=== PATIENT | female | born 1960 | race Caucasian/White ===

== ENCOUNTER → 2016-05-26 | Outpatient (CLI) | payer MEDICARE, OTHER ==
--- NOTE | 2016-05-26 22:27 | US ---
EXAMINATION TYPE: US thyroid st tissue head/neck DATE OF EXAM: 05/26/2016 4:44 PM COMPARISON: NONE CLINICAL HISTORY: 56-year-old female E04.1 THYROID NODULE. TECHNIQUE: Multiple sonographic images of the thyroid gland are obtained. FINDINGS: GLAND SIZE: Right Lobe: 2.8 x 1.0 x 1.1 cm Overall Parenchyma: heterogenous Left Lobe: 3.6 x 1.5 x 0.8 cm Overall Parenchyma: heterogeneous Isthmus Thickness: 0.3 cm NODULES RIGHT: # of nodules measured on right: 1 1. 0.7 X 0.6 x 0.7 cm echogenic solid nodule at the mid pole with well-defined margins; . This nod ule is wider than tall and shows intranodular vascularity. LEFT: # of nodules measured on left: 0 ISTHMUS: # of nodules measured in the isthmus: 0 TECHNOLOGIST NOTES: Heterogenous gland noted bilaterally. Hypoechoic area adjacent to bilateral thyr oid lobes, larger on the right where it measures up to 2.1 x 1.0 cm along the posterior superior frida in of the thyroid gland (??normal lobulated thyroid tissue vs. other etiology) IMPRESSION: 1. Small heterogeneous thyroid gland. Correlate for chronic thyroiditis or long-standing hypothyroidi sm. 2. Solitary 7 mm solid nodule in the right lobe. 3. Lobulated hypoechoic area is seen adjacent to both lobes of the thyroid gland larger on the right where it measures up to 2.1 cm. Uncertain if this represents adjacent more normal thyroid gland tissu e or some other etiology such as adjacent lymph nodes. This can be monitored on a clinical basis. Fo llow-up ultrasound can also reassess for stability.
== END ==
LOC: RADUSWWP 16:09
PROVIDERS: ATTEND Otolaryngology
DX: E04.1 Nontoxic single thyroid nodule (principal)
CPT/HCPCS: 76536

== ENCOUNTER → 2016-09-11 | Outpatient (CLI) | payer MEDICARE, OTHER ==
--- NOTE | 2016-09-11 16:28 | MR ---
EXAMINATION TYPE: MR lumbar spine wo con DATE OF EXAM: 09/11/2016 COMPARISON: 03/15/2014 HISTORY: 56-year-old female with low back pain TECHNIQUE: Multiplanar, multisequence images of the lumbar spine were acquired. FINDINGS: Mild multilevel degenerative disc disease with variable disc desiccation and bulging discs. Redemonstrated left paracentral/intraforaminal annular fissure at L4-L5. Facet arthropathy within the mid to lower lumbar spine with mild ligamentum flavum thickening. Vertebral body heights are preserved and alignment is maintained. No suspicious bone marrow replacement. Conus medullaris is normal. From T12 through L2 levels, no significant spinal canal or neuroforaminal stenosis. At L2-L3, there is mild diffuse disc bulge and mild facet degenerative change. No significant spinal canal or neuroforaminal stenosis. At L3-L4, there is facet degenerative change without significant spinal canal or neuroforaminal steno sis. At L4-L5, there is mild diffuse disc bulge with a small left intraforaminal protrusion containing an annular fissure, similar to prior exam. Disc material closely approaches the exiting left L4 nerve ro ot without clear abutment. There is additional ligamentum flavum thickening and facet degenerative ch chris. Minimal encroachment onto the right neuroforamen. No significant spinal canal stenosis. At L5-S1, there is mild bulging disc, ligamentum flavum thickening, and hypertrophic facet arthropath y. No significant spinal canal or neural foraminal stenosis. No prevertebral or paravertebral soft tissue abnormality seen. There is a 2.0 cm cystic lesion within the left ovary that may be slightly larger as compared to 2014. If the patient is premenopausal, a dominant follicle or functional cyst is suggested. IMPRESSION: 1. Mild multilevel degenerative disc disease redemonstrated. There is ligamentum flavum thickening an d facet arthropathy also again seen within the mid to lower lumbar spine. 2. Similar disc bulge at L4-L5 with a left intraforaminal annular fissure. Disc material closely appr oaches the exiting left L4 nerve root without clear nerve root abutment. 3. No foraminal or spinal canal compromise. 4. A 2.0 cm cystic lesion within the left ovary appears slightly larger as compared to 03/15/2014. If t he patient is premenopausal, findings suggest a dominant follicle or functional cyst. If the patient is postmenopausal, annual ultrasound surveillance may be indicated.
== END | disposition home or self-care (01) ==
LOC: RADMRIMAIN 14:20
PROVIDERS: ATTEND Nurse Practitioner Acute Care
DX: M51.26 Other intervertebral disc displacement, lumbar region (principal); M51.36 Other intervertebral disc degeneration, lumbar region; M46.06 Spinal enthesopathy, lumbar region; Z88.1 Allergy status to other antibiotic agents; Z88.2 Allergy status to sulfonamides
CPT/HCPCS: 72148

== ENCOUNTER → 2017-01-15 | Outpatient (CLI) | payer MEDICARE, OTHER ==
--- NOTE | 2017-01-15 13:25 | XR ---
EXAMINATION TYPE: XR chest 2V DATE OF EXAM: 01/15/2017 COMPARISON: Prior chest x-ray March 06, 2014 HISTORY: Presurgical study. TECHNIQUE: Frontal and lateral views of the chest are obtained. FINDINGS: There is chronic medical change without suspicious focal air space opacity, pleural effusi on, or pneumothorax seen. The cardiac silhouette size is stable and within normal limits. There is p artial visualization of surgical change of the lower cervical spine. IMPRESSION: No acute cardiopulmonary process. No significant change from prior.
--- NOTE | 2017-01-15 15:38 | CT ---
EXAMINATION TYPE: CT soft tissue neck w con DATE OF EXAM: 01/15/2017 COMPARISON: Thyroid ultrasound 01/07/2017 HISTORY: 56-year-old female neck mass, thyroid nodule. TECHNIQUE: Contiguous axial scanning of the soft tissues of the neck performed with IV Contrast, kylie ent injected with 100 mL of Omnipaque 300. Coronal/sagittal reconstructions were obtained. CT DLP: 437 mGycm Automated exposure control for dose reduction was used. FINDINGS: Visualized intracranial structures, orbits and globes, paranasal sinuses appear within normal limits. Mastoid air cells are somewhat hypoplastic. Nasal pharynx appears clear. There appears to be soft tissue thickening throughout the oropharynx including the lingual tonsils an d along the left greater than right tonsillar pillars. The glottic and subglottic structures as well as the tracheal column are clear. There is some pleural -parenchymal scarring and blebs in the visualized upper lungs. The thyroid gland shows no gross abnormality by CT. There does appear to be some prominent extension of thyroid tissue posteriorly on either side of the esophagus. This likely accounts for the ultrasoun d finding. Submandibular and parotid glands are satisfactory. Scattered nonenlarged cervical lymph nodes on both sides of the neck measuring up to 8 mm station 2A on the left. Status post C5-C7 ACDF. IMPRESSION: 1. SOFT TISSUE THICKENING THROUGHOUT THE MUCOSAL SPACE OF THE OROPHARYNX INCLUDING THE LINGUAL TONSIL S AND LEFT GREATER THAN RIGHT TONSILLAR PILLARS. DIRECT VISUALIZATION IS RECOMMENDED. TONSILLITIS AND LYMPHOID HYPERPLASIA ARE IN THE DIFFERENTIAL. 2. THYROID TISSUE DOES EXTEND POSTERIORLY TO LIE ON EITHER SIDE OF THE ESOPHAGUS. THIS LIKELY ACCOUNT S FOR THE ULTRASOUND FINDING.
== END | disposition home or self-care (01) ==
LOC: RADCTMAIN 12:44
PROVIDERS: ATTEND Otolaryngology
DX: J39.2 Other diseases of pharynx (principal); R22.1 Localized swelling, mass and lump, neck
CPT/HCPCS: 71020; 70491; Q9967

== ENCOUNTER → 2017-07-03 | Outpatient (CLI) | payer MEDICARE, OTHER ==
--- NOTE | 2017-07-03 11:34 | MR ---
EXAMINATION TYPE: MR lumbar spine wo/w con DATE OF EXAM: 07/03/2017 COMPARISON: 09/11/2016 HISTORY: Low back pain TECHNIQUE: T1 and T2 axial and sagittal images of the lumbar spine are submitted. Contrast: 7 mL Gadavist FINDINGS: There is no abnormal signal seen within the visualized spinal cord or paraspinal soft tissu es. Stable subcentimeter left renal lesions. There is a tiny nerve root sleeve diverticulum at T12-L1 the right At L1-2 there is mild degenerative disc disease but no disc herniation or canal stenosis. No foramina l encroachment. At L2-3 there is mild degenerative disc disease and circumferential disc bulging which is stable. No Canal stenosis. Very mild neural foraminal encroachment. At L3-4 there is hypertrophic change of the facets. No canal stenosis or disc herniation. No foramina l encroachment. At L4-5 there is postsurgical changes with no canal stenosis. No disc herniation. Faint increased sig nal within the disc space likely is postsurgical rather then related discitis. There is increased sig nal along the right neural foramina. There is artifact which limits assessment from the surgical scre ws. This may represent granulation tissue or scar formation. Extends along the right neural foraminal results in mild encroachment. At L5-S1 there is marked facet arthropathy. There appears to be mild bilateral foraminal encroachment . Diminutive spinal canal noted results in borderline central stenosis. Findings are stable. Minimal disc bulging stable. IMPRESSION: 1. Postsurgical changes with abnormal signal within the disc space of L4-5. This is felt to be most l ikely postsurgical rather than related to early discitis but should be correlated clinically for conf irmation. 2. Assessment of the surgical levels is limited due to artifact from the metallic hardware. There chris s appear to be intermediate signal along the posterior margin the L4-L5 right neural foramina which c ould be related to artifact although, postoperative granulation tissue or scar enteritis in the diffe rential diagnosis. Neural foramina remains patent. Correlate for radiculopathy at this level. 3. Stable facet arthropathy and ligamentum flavum hypertrophy L5-S1 with mild foraminal encroachment with no disc herniation. Diminutive canal contributes to borderline central stenosis. Findings stable .
== END | disposition home or self-care (01) ==
LOC: RADMRIMAIN 09:35
PROVIDERS: ATTEND Nurse Practitioner Acute Care
DX: M24.28 Disorder of ligament, vertebrae (principal); Z98.890 Other specified postprocedural states; M54.5 Low back pain; Z88.0 Allergy status to penicillin; Z88.2 Allergy status to sulfonamides; Z88.1 Allergy status to other antibiotic agents
CPT/HCPCS: 72158

== ENCOUNTER → 2017-07-14 | Outpatient (CLI) | payer MEDICARE, OTHER ==
--- NOTE | 2017-07-14 16:11 | US ---
EXAMINATION TYPE: US thyroid st tissue head/neck DATE OF EXAM: 07/14/2017 COMPARISON: US 2017 CLINICAL HISTORY: 57-year-old female E04.1 Thyroid Nodule; takes thyroid medication TECHNIQUE: Multiple sonographic images of the thyroid gland are obtained. FINDINGS: GLAND SIZE: Right Lobe: 2.4 x 0.7 x 0.9 cm Overall Parenchyma: heterogenous Left Lobe: 3.2 x 0.7 x 0.6 cm Overall Parenchyma: heterogeneous Isthmus Thickness: 0.2 cm NODULES RIGHT: # of nodules measured on right: 1 1. 0.8 X 0.5 x 0.4 cm isoechoic solid nodule at the mid pole with well-defined margins. This nodul e is wider than tall and shows no intranodular vascularity. Prior size: 0.8 x 0.6 x 0.8 cm LEFT: # of nodules measured on left: 0 ISTHMUS: # of nodules measured in the isthmus: 0 Bilateral neck scanned, no evidence of lymphadenopathy. Dough Mixer Helper notes: Lateral to the right thyroid lobe, there is an oval area with echogenicity equal to right thyroid gla nd measuring 1.8 x 1.5 x 0.7cm (possible accessory thyroid gland vs. lymph node). (Previously 1.1 x 1 .1 x 0.6 cm) Along the inferior lateral aspect of the left thyroid lobe, there appears to be an extension of thyro id tissue contiguous with the remainder of the lobe measuring 2.3 x 0.5 x 0.7 cm as seen previously. IMPRESSION: 1. Some ectopic thyroid tissue versus a lymph node lateral to the right lobe of the thyroid gland. Th is currently measures 1.8 x 1.5 cm versus 1.1 x 1.1 cm, previously. Recommend additional short interv al follow-up. If additional growth is noted, repeat CT neck can be considered. 2. Lobular extension from the inferior lateral aspect of the left thyroid lobe as seen previously олег sures 2.3 x 0.7 cm. 3. Stable solid right midpole nodule at 8 mm.
== END | disposition home or self-care (01) ==
LOC: RADUSWWP 14:42
PROVIDERS: ATTEND Otolaryngology
DX: E04.1 Nontoxic single thyroid nodule (principal)
CPT/HCPCS: 76536

== ENCOUNTER → 2017-08-19 | Outpatient (CLI) | payer MEDICARE, OTHER ==
--- NOTE | 2017-08-21 10:39 | MM ---
Reason for exam: screening (asymptomatic). Last mammogram was performed 2 years and 2 months ago. History: Family history of breast cancer in sister at age 56. Physical Findings: A clinical breast exam by your physician is recommended on an annual basis and results should be correlated with mammographic findings. MG 3D Screening Mammo W/Cad Bilateral CC and MLO view(s) were taken. Prior study comparison: June 14, 2015, mammogram. The breast tissue is heterogeneously dense. This may lower the sensitivity of mammography. Finding: There are typically benign circumscribed round oval masses bilaterally unchanged from 2016. No suspicious abnormality. No significant changes in finding since June 14, 2015. ASSESSMENT: Benign, BI-RAD 2 RECOMMENDATION: Routine screening mammogram of both breasts in 1 year.
== END | disposition home or self-care (01) ==
LOC: RADMAMWWP 14:28
PROVIDERS: ATTEND Family Medicine
DX: Z12.31 Encounter for screening mammogram for malignant neoplasm of breast (principal)
CPT/HCPCS: 77063; 77067

== ENCOUNTER → 2017-12-25 | Outpatient (CLI) | payer MEDICARE, OTHER ==
--- NOTE | 2017-12-25 15:24 | CT ---
EXAMINATION TYPE: CT iac w con DATE OF EXAM: 12/25/2017 COMPARISON: July 08, 2012 HISTORY: hearing loss to both ears, tinnitus CT DLP: 150.0 mGycm Automated exposure control for dose reduction was used. CONTRAST: CT scan of the IACs is performed with IV Contrast, patient injected with 100 mL of Isovue 300. FINDINGS: The external auditory canals are patent bilaterally. Mastoid air cells show no evidence of abnormal opacification bilaterally. The middle ear ossicles are symmetric and unremarkable. There is no evidence of suspicious surrounding soft tissue density to suggest cholesteatoma. The scutum is preserved bilaterally. The cochlea and the semicircular canals are symmetric and unremarkable. Ves tibular aqueduct and internal carotid canal appear unremarkable. Temporomandibular joints are mainta ined bilaterally. IMPRESSION: No significant abnormality seen to account for patient's symptoms.
== END | disposition home or self-care (01) ==
LOC: RADCTMAIN 14:15
PROVIDERS: ATTEND Otolaryngology
DX: H91.91 Unspecified hearing loss, right ear (principal); H93.19 Tinnitus, unspecified ear; H93.3X9 Disorders of unspecified acoustic nerve
CPT/HCPCS: 70481; Q9967

== ENCOUNTER → 2017-12-25 | Outpatient (CLI) | payer MEDICARE, OTHER ==
--- NOTE | 2017-12-25 15:15 | CT ---
EXAMINATION TYPE: CT lumbar spine wo con DATE OF EXAM: 12/25/2017 COMPARISON: HISTORY: low back pain, hx of lumbar fusion years ago CT DLP: 1063.[address] of the lumbar spine was performed. Bone and soft tissue window settings are submitted as well as coronal and sagittal reconstructions. L1-L2: Normal disc space height. No disc herniation protrusion or central stenosis. No facet joint arthropathy. No evidence for foraminal encroachment. L2-L3: Normal disc space height. No disc herniation protrusion or central stenosis. No facet joint arthropathy. No evidence for foraminal encroachment. L3-L4: Normal disc space height. No disc herniation protrusion or central stenosis. No facet joint arthropathy. No evidence for foraminal encroachment. L4-L5: Postoperative changes of fusion. Intervertebral body spacers are in place. Pedicular screws ar e also in place. Alignment is anatomic. Streak artifact limits evaluation. No definite evidence for r ecurrent or residual disease at this time. L5-S1: Normal disc space height. No disc herniation protrusion or central stenosis. No facet joint arthropathy. No evidence for foraminal encroachment. No paraspinal masses are identified. Lumbar segments are free if fracture. IMPRESSION: 1. Postoperative changes at L4-5 with alignment being anatomic. 2. Remaining levels are within normal limits.
== END | disposition home or self-care (01) ==
LOC: RADCTMAIN 14:12
PROVIDERS: ATTEND Neurological Surgery
DX: M54.41 Lumbago with sciatica, right side (principal); Z98.1 Arthrodesis status
CPT/HCPCS: 72131

== ENCOUNTER → 2018-01-19 | Outpatient (CLI) | payer MEDICARE, OTHER ==
--- NOTE | 2018-01-20 12:05 | MR ---
EXAMINATION TYPE: MR lumbar spine wo con DATE OF EXAM: 01/19/2018 COMPARISON: CT of the lumbar spine dated 12/25/2017. MRI of the lumbar spine dated 07/03/2017 and 2016. HISTORY: Lumbago with sciatica, right side, back pain TECHNIQUE: Multiplanar, multisequence images of the lumbar spine were acquired. FINDINGS: The lumbar vertebral bodies maintain normal vertebral body height and alignment. Bone marro w signal is within normal limits. Conus medullaris is unremarkable terminating at L1. Right T12 perin eural cyst is again seen and partially visualized given [id number]. Postsurgical changes L4-L5 cre ates susceptibility artifact and slightly limits evaluation. L1-L2: There is disc desiccation without spinal canal stenosis nor neural foraminal narrowing. Schmor l's node is seen of the inferior endplate of T12 secondary to degenerative disc disease. L2-L3: There is disc desiccation and a small broad-based disc bulge resulting in. Minimal neural fora celestino encroachment without spinal canal stenosis. Mild facet arthropathy is also seen at this level. L3-L4: Small broad-based disc bulge, ligamentum flavum buckling and facet arthropathy is noted withou t spinal canal stenosis nor neural foraminal narrowing. L4-L5: Again there is postsurgical change at this level with small left hemilaminectomy defect presen t in the right anterior lamina obscured. As seen on the prior exam on sagittal T1 and T2 image 6 ther e is elongated hypointensity measuring 2.2 cm in craniocaudal dimension. Extent of abnormal signal al christa the right neuroforamen as seen on the prior exam is obscured by susceptibility artifact is again faintly suspected. The left neural foramen on sagittal images appears patent with moderate neural for aminal narrowing on the right. Increased signal within the discs space on the right on image 8 of sag ittal T2 nonfat sat sequence represents a small annular tear. L5-S1: Marked facet arthropathy is again seen. A broad-based disc bulge is present without significan t neural foraminal narrowing. Again there is mild spinal canal stenosis as seen on the prior secondar y to posterior encroachment by T1/T2 hypointense granulation tissue or epidural fibrosis. IMPRESSION: 1. Similar findings the prior exam of 07/03/2017 with right-sided moderate neural foraminal narrowing and at L4-L5 and mild spinal canal stenosis at L5-S1 secondary to either granulation tissue or epidur al fibrosis. Limited repeat T1 postcontrast sequence could evaluate for enhancing epidural fibrosis. Again correlate with radiculopathy levels. 2. Annular tear within the L4-L5 disc without focal herniation. 3. Multilevel degenerative disc disease with no disc herniation.
== END | disposition home or self-care (01) ==
LOC: RADMRIMAIN 13:04
PROVIDERS: ATTEND Neurological Surgery
DX: M48.07 Spinal stenosis, lumbosacral region (principal); M99.73 Connective tissue and disc stenosis of intervertebral foramina of lumbar region; M51.36 Other intervertebral disc degeneration, lumbar region
CPT/HCPCS: 72148

== ENCOUNTER → 2018-01-29 | Outpatient (CLI) | payer MEDICARE, OTHER ==
--- NOTE | 2018-01-29 10:53 | US ---
EXAMINATION TYPE: US thyroid st tissue head/neck DATE OF EXAM: 01/29/2018 COMPARISON: NONE CLINICAL HISTORY: E04.1 Thyroid Nodule. 07/24 US GLAND SIZE: Right Lobe: 2.6 x 0.9 x 0.8 cm Overall Parenchyma: hypoechoic, atrophied, diffusely heterogeneous Left Lobe: 3.6 x 0.9 x 0.6 cm Overall Parenchyma: lobular, hypoechoic and diffusely heterogeneous Isthmus Thickness: 0.2 cm NODULES RIGHT: # of nodules measured on right: 1 1. 0.7 X 0.4 x 0.5 cm echogenic solid nodule at the lower pole with well-defined margins. This nod ule is wider than tall and shows peripheral vascularity. Prior size: 0.8 x 0.5 x 0.4 cm LEFT: # of nodules measured on left: 0 ISTHMUS: # of nodules measured in the isthmus: 0 Superior to the right lobe, there is a 1.0 x 0.4 x 0.8cm solid structure that is isoechoic to the rig ht lobe that may represent either ectopic thyroid tissue or lymph node. This could be a parathyroid. Inferior to the left lobe, there is a 0.7 x 0.4 x 0.4cm solid structure that is isoechoic to the left lobe that may represent either ectopic thyroid tissue or lymph node. This could be a parathyroid. IMPRESSION: 1. Subcentimeter right lobe thyroid nodule. 2. Couple of nodules adjacent to the thyroid lobes which are nonspecific. Lymph node and parathyroid are within the differential. CT soft tissue neck be performed if additional evaluation would be of be nefit.
== END | disposition home or self-care (01) ==
LOC: RADUSWWP 10:07
PROVIDERS: ATTEND Otolaryngology
DX: E04.1 Nontoxic single thyroid nodule (principal)
CPT/HCPCS: 76536

== ENCOUNTER → 2018-02-19 | Outpatient (CLI) | payer MEDICARE, OTHER ==
--- NOTE | 2018-02-19 16:55 | MR ---
EXAMINATION TYPE: MR iac wo/w con DATE OF EXAM: 02/19/2018 COMPARISON: CT 12/25/2017 HISTORY: BiLateral hearing loss, Gadavist 7.5 TECHNIQUE: Multiplanar, multisequence images of the brain and brainstem is performed without and with IV contras t, utilizing 7.5 mL intravenous Gadavist, small [id number] high-resolution images obtained through the internal auditory canals . FINDINGS: Diffusion weighted images demonstrate no evidence of a recent infarct or other diffusion ab normality. There is no extra-axial fluid collection. Scattered periventricular, subcortical and alecia p white matter hyperintensities are present on inversion recovery T2-weighted sequences, approximatel y 30-40 lesions are present, largest in the left frontal lobe on axial image 23 measures 6 mm The melvi tricular system and cisternal spaces are normal in size and appearance. The brain volume is age appr opriate. Midline structures demonstrate normal morphology. The craniocervical junction appears within normal limits. Post contrast images demonstrate no abnormal enhancement. The dural venous sinuses appear pa tent. The visualized sinuses are clear and the globes are intact. IMPRESSION: Nonspecific white matter demyelination may be due to chronic small vessel ischemia, hyper tension, vasculitis, multiple sclerosis felt to be less likely.
== END | disposition home or self-care (01) ==
LOC: RADMRIMAIN 15:07
PROVIDERS: ATTEND Otolaryngology Otology & Neurotology
DX: G37.8 Other specified demyelinating diseases of central nervous system (principal); D49.6 Neoplasm of unspecified behavior of brain
CPT/HCPCS: 70553; A9585

== ENCOUNTER → 2018-07-20 | Outpatient (CLI) | payer MEDICARE, OTHER ==
--- NOTE | 2018-07-20 15:28 | US ---
EXAMINATION TYPE: US thyroid st tissue head/neck DATE OF EXAM: 07/20/2018 COMPARISON: 01/29/2018 and 07/14/2017. CLINICAL HISTORY: E04.1 Thyroid nodule. GLAND SIZE: Right Lobe: 2.4 x 0.8 x 0.6 cm Overall Parenchyma: heterogenous Left Lobe: 3.2 x 0.7 x 0.6 cm Overall Parenchyma: heterogeneous Isthmus Thickness: 0.6 cm NODULES RIGHT: # of nodules measured on right: 1 1. 0.6 X 0.4 x 0.4 cm echogenic solid nodule at the mid pole with well-defined margins. This nodul e is wider than tall and shows intranodular vascularity. Prior size: 0.7 x 0.4 x 0.4 cm LEFT: # of nodules measured on left: 0 ISTHMUS: # of nodules measured in the isthmus: 0 Bilateral neck scanned, no evidence of lymphadenopathy. IMPRESSION: Stable size of the solitary right hyperechoic thyroid nodule in comparison to the prior of 01/29/2018 and 07/14/2017. The previously seen adjacent lymph node is no longer visualized.
== END | disposition home or self-care (01) ==
LOC: RADUSWWP 14:50
PROVIDERS: ATTEND Otolaryngology
DX: E04.1 Nontoxic single thyroid nodule (principal); Z88.0 Allergy status to penicillin; Z88.1 Allergy status to other antibiotic agents; Z88.2 Allergy status to sulfonamides
CPT/HCPCS: 76536

== ENCOUNTER → 2018-10-14 | Outpatient (CLI) | payer MEDICARE, OTHER ==
--- NOTE | 2018-10-18 09:48 | MM ---
Reason for exam: screening (asymptomatic). Last mammogram was performed 1 year and 2 months ago. History: Patient is postmenopausal. Family history of breast cancer in sister at age 56. Physical Findings: A clinical breast exam by your physician is recommended on an annual basis and results should be correlated with mammographic findings. MG Screening Mammo w CAD Bilateral CC and MLO view(s) were taken. Prior study comparison: August 19, 2017, bilateral MG 3d screening mammo w/cad. June 14, 2015, mammogram. The breast tissue is heterogeneously dense. This may lower the sensitivity of mammography. No suspicious abnormality on the left. Right architectural distortion in the central, slightly inferior right breast at middle depth 5-6cm from nipple. ASSESSMENT: Incomplete: need additional imaging evaluation, BI-RAD 0 RECOMMENDATION: Special view mammogram of the right breast. If lesion persists on supplemental views, image directed ultrasound is recommended. [facility] will attempt to contact patient to return for supplemental views and ultrasound if indicated.
== END | disposition home or self-care (01) ==
LOC: RADMAMWWP 13:07
PROVIDERS: ATTEND Family Medicine
DX: Z12.31 Encounter for screening mammogram for malignant neoplasm of breast (principal)
CPT/HCPCS: 77067

== ENCOUNTER → 2018-10-27 | Outpatient (CLI) | payer MEDICARE, OTHER ==
--- NOTE | 2018-10-27 14:48 | MM ---
Reason for exam: additional evaluation requested from abnormal screening. Last mammogram was performed less than 1 month ago. History: Patient is postmenopausal. Family history of breast cancer in sister at age 56. Physical Findings: Nurse did not find any significant physical abnormalities on exam. MG 3D Work Up W/Cad RT Spot compression CC, spot compression MLO, and LM view(s) were taken of the right breast. Prior study comparison: October 14, 2018, bilateral MG screening mammo w CAD. August 19, 2017, bilateral MG 3d screening mammo w/cad. The breast tissue is heterogeneously dense. This may lower the sensitivity of mammography. There is chronic nodularity in the right breast. There is no discrete abnormality on compression. These results were verbally communicated with the patient and result sheet given to the patient on 10/27/18. ASSESSMENT: Probably benign, BI-RAD 3 RECOMMENDATION: Follow-up diagnostic mammogram of the right breast in 6 months.
== END | disposition home or self-care (01) ==
LOC: RADMAMWWP 14:10
PROVIDERS: ATTEND Family Medicine
DX: R92.8 Other abnormal and inconclusive findings on diagnostic imaging of breast (principal)
CPT/HCPCS: 77065; G0279; 77061

== ENCOUNTER → 2019-03-31 | Outpatient (CLI) | payer MEDICARE, OTHER ==
--- NOTE | 2019-03-31 15:35 | CTL ---
EXAMINATION TYPE: CT Low Dose Lung DATE OF EXAM ORDERED: 03/31/2019 COMPARISON: None HISTORY: . Low Dose CT Lung Screening CT DLP: [address] CTDI: 2.64 mGy IV CONTRAST USED: None. SCREENING VISIT: First visit COMPARISON: None. TECHNIQUE: Low dose computed tomography scan was performed through the chest at 1 millimeter thick se ctions and reconstructed images in the coronal plane at [address] DIAGNOSTIC QUALITY: Satisfactory FINDINGS: LUNG NODULES yes Right lung: Bilobed pulmonary nodules measuring 3 mm and 4 mm respectively images 17 and 18. 4.3 mm p ulmonary nodule right lower lobe medially image 46. Left lung: No nodule seen. LUNGS: COPD: Severity: Mild. Upper lobe emphysematous changes seen. Fibrosis: Severity:None Lymph nodes: None Other findings: None RIGHT PLEURAL SPACE: Effusion: None Calcification: None Thickening: None Pneumothorax: None LEFT PLEURAL SPACE: Effusion: None Calcification: None Thickening: None Pneumothorax: None HEART: Heart Size: Mildly enlarged Coronary calcification: Mild Pericardial effusion: None OTHER FINDINGS: Upper abdomen: No significant abnormality Bony thorax: Degenerative changes Supraclavicular region: No significant abnormalityOther: No significant abnormalityI IMPRESSION: Benign FOLLOW UP CT CHEST RECOMMENDATION: Follow-up screening in one year. Smoking cessation advised. CT LUNG RAD: LUNG RAD CATEGORY category 2 benign appearance or behavior.
== END | disposition home or self-care (01) ==
LOC: RADCTMAIN 14:55
PROVIDERS: ATTEND Physician Assistant
DX: Z12.2 Encounter for screening for malignant neoplasm of respiratory organs (principal); F17.210 Nicotine dependence, cigarettes, uncomplicated

== ENCOUNTER → 2019-05-12 | Outpatient (CLI) | payer MEDICARE, OTHER ==
--- NOTE | 2019-05-12 15:02 | MM ---
Reason for exam: follow-up at short interval from prior study. Last mammogram was performed 6 months ago. History: Patient is postmenopausal. Family history of breast cancer in sister at age 56. Took estrogen for 1 year 6 months. Physical Findings: Nurse did not find any significant physical abnormalities on exam. MG 3D Diag Mammo W/Cad RT CC and MLO view(s) were taken of the right breast. Prior study comparison: October 27, 2018, right breast MG 3d work up w/cad RT. October 14, 2018, bilateral MG screening mammo w CAD. The breast tissue is heterogeneously dense. This may lower the sensitivity of mammography. There is a stable right lower outer quadrant 4mm mass back to 2016. No new suspicious abnormality. The central lower focal asymmetry at middle depth has resolved. These results were verbally communicated with the patient and result sheet given to the patient on 05/12/19. ASSESSMENT: Benign, BI-RAD 2 RECOMMENDATION: Return to routine screening mammogram schedule for both breasts. Back on schedule for October 2019.
== END | disposition home or self-care (01) ==
LOC: RADMAMWWP 12:52
PROVIDERS: ATTEND Family Medicine
DX: R92.8 Other abnormal and inconclusive findings on diagnostic imaging of breast (principal)
CPT/HCPCS: 77065; G0279; 77061

== ENCOUNTER 2019-10-30 12:17 | Emergency (ER) | payer MEDICARE, OTHER ==
[2019-10-30 12:22] VITALS: BP 161/96; PULSE 82; RESP 20; TEMP 97.7
--- NOTE | 2019-10-30 12:43 | ED ---
Upper Extremity HPI - General Chief Complaint: Extremity Injury, Upper Stated Complaint: shoulder pain Time Seen by Provider: 10/30/19 12:23 Source: patient, RN notes reviewed Mode of arrival: ambulatory Limitations: no limitations - History of Present Illness Initial Comments: 59-year-old female presents emergency Department with chief complaint of left shoulder pain, rib pain. Patient states that she was coughing so hard other day she felt a pop. Patient states it's been painful ever sent. Patient was evaluated by pain management physician yesterday did receive injection in her shoulder. Patient presented requesting x-ray. She denies feeling short of breath no anterior chest pain no palpitations denies any headache or dizziness. Patient states that she does have cardiac history but states that she has no chest pain and that nature and states that she just wants x-ray. - Related Data Home Medications Medication Instructions Recorded Confirmed Aspirin 81 mg PO DAILY 03/06/14 04/25/15 Atorvastatin [Lipitor] 40 mg PO DAILY 03/06/14 04/25/15 Azelastine(Dose Unknown) 2 sprays NASAL BID 03/06/14 04/25/15 Ventolin(Dose Unknown) 2 puff INHALATION BID PRN 03/06/14 04/25/15 carvediloL [Coreg] 3.125 mg PO DAILY 03/06/14 04/25/15 diphenhydrAMINE [Benadryl] 25 mg PO DAILY PRN 03/06/14 04/25/15 Fluticasone Nasal [place] [Flonase 1 spray EA NOSTRIL BID 04/25/15 04/25/15 Nasal [place]] Hydrocodone/Acetaminophen [[place] 1 tab PO Q8H PRN 04/25/15 04/25/15 10-325] Isosorbide Mononitrate ER [Imdur] 30 mg PO DAILY 04/25/15 04/25/15 Levocetirizine Dihydrochloride 5 mg PO DAILY 04/25/15 04/25/15 [Xyzal] Levothyroxine Sodium [Synthroid] 88 mcg PO DAILY 04/25/15 04/25/15 Allergies Allergy/AdvReac Type Severity Reaction Status Date / Time ampicillin Allergy Unknown Verified 10/30/19 12:22 Childhood erythromycin base Allergy Nausea, Verified 10/30/19 12:22 stomach cramps latex Allergy itchy nose Verified 10/30/19 12:22 Tetracyclines Allergy Nausea Verified 10/30/19 12:22 perfumes Allergy Unknown Uncoded 10/30/19 12:22 Review of Systems ROS Statement: Those systems with pertinent positive or pertinent negative responses have been documented in the HPI. ROS Other: All systems not noted in ROS Statement are negative. Past Medical History Past Medical History: Asthma, COPD, Hearing Disorder / Deafness, Hyperlipidemia, Myocardial Infarction (CO), Osteoarthritis (OA), Pneumonia, Syncope, Thyroid Disorder Additional Past Medical History / Comment(s): 2011 M, DJD, rotator cuff tear Last Myocardial Infarction Date:: 2011 History of Any Multi-Drug Resistant Organisms: None Reported Past Surgical History: Heart Catheterization With Stent, Orthopedic Surgery, Tubal Ligation Additional Past Surgical History / Comment(s): 3 stents, cleft palette repair, several ear surgeries(tubes mostly, ear drum reconstruction) eye surgery (detached retina), nose surgery, plate and 2 screws in neck, cortisone shots in back, Past Anesthesia/Blood Transfusion Reactions: Family History of Problems w/ Anesthesia Additional Past Anesthesia/Blood Transfusion Reaction / Comment(s): after nose surgery, trouble breathing Date of Last Stent Placement:: metal stent March 2012 1 placed, February 2014 1 placed Past Psychological History: Anxiety, Depression Smoking Status: Current every day smoker Past Alcohol Use History: Rare Past Drug Use History: None Reported - Past Family History Mother Family Medical History: Congestive Heart Failure (CHF) Father Family Medical History: Congestive Heart Failure (CHF) Sister(s) Family Medical History: Cancer Additional Family Medical History / Comment(s): lung General Exam Limitations: no limitations General appearance: alert, in no apparent distress Head exam: Present: atraumatic, normocephalic, normal inspection Eye exam: Present: normal appearance, PERRL, EOMI. Absent: scleral icterus, conjunctival injection, periorbital swelling ENT exam: Present: normal exam, normal oropharynx, mucous membranes moist Neck exam: Present: normal inspection, full ROM. Absent: tenderness, meningismus, lymphadenopathy Respiratory exam: Present: normal lung sounds bilaterally, chest wall tenderness (Left posterior). Absent: respiratory distress, wheezes, rales, rhonchi, stridor Cardiovascular Exam: Present: regular rate, normal rhythm, normal heart sounds. Absent: systolic murmur, diastolic murmur, rubs, gallop, clicks GI/Abdominal exam: Present: soft, normal bowel sounds. Absent: distended, tenderness, guarding, rebound, rigid Extremities exam: Present: other (Mild discomfort with left shoulder range of motion no obvious deformity neurovascular intact there is tenderness over the scapular region) Neurological exam: Present: alert, oriented X3, CN II-XII intact, reflexes normal. Absent: motor sensory deficit Course Vital Signs 10/30/19 12:20 Temperature 97.7 F Pulse Rate 82 Respiratory 20 Rate Blood Pressure 161/96 O2 Sat by Pulse 95 Oximetry - Reevaluation(s) Reevaluation #1: 10/30/19 12:43 I did recommend lab work given her cardiac history patient declines. Medical Decision Making - Medical Decision Making X-rays unremarkable. Patient has reproducible scapular rib pain. Patient's most likely has strain of her chest wall. Patient recommended labwork a history patient states that is not cardiac. Patient will be discharged in stable condition. Disposition Clinical Impression: Left shoulder pain, Chest wall muscle strain Disposition: HOME SELF-CARE Condition: Stable Instructions (If sedation given, give patient instructions): Shoulder Pain (ED) Additional Instructions: Please return to the Emergency Department if symptoms worsen or any other concerns. Is patient prescribed a controlled substance at d/c from ED?: No Referrals: Juan Palencia DO [Primary Care Provider] - 1-2 days Time of Disposition: 13:02
--- NOTE | 2019-10-30 12:51 | XR ---
EXAMINATION TYPE: XR chest 1V DATE OF EXAM: 10/30/2019 COMPARISON: Chest x-ray January 15, 2017 HISTORY: Chest pain. TECHNIQUE: Single frontal view of the chest is obtained. FINDINGS: There is mild chronic parenchymal change without suspicious focal air space opacity, pleural effusion, or pneumothorax seen. The cardiac silhouette size remains within normal limits. Surgical changes cervical spine as partially imaged. IMPRESSION: Chronic changes without acute pulmonary process.
--- NOTE | 2019-10-30 12:52 | XR ---
EXAMINATION TYPE: XR shoulder complete LT DATE OF EXAM: 10/30/2019 CLINICAL HISTORY: Shoulder pain after fall injury. TECHNIQUE: Three views of the left shoulder are obtained. COMPARISON: None. FINDINGS: Osseous structures are demineralized. There is no acute fracture/dislocation evident in the left shoulder. Moderate narrowing at acromioclavicular joint. And distal acromion morphology is unre markable. Glenohumeral joint is preserved. The visualized ribs are intact and unremarkable. IMPRESSION: There is no acute fracture or dislocation in the left shoulder.
== END 2019-10-30 13:14 | disposition home or self-care (01) ==
LOC: EC 12:17
DX: S29.011A Strain of muscle and tendon of front wall of thorax, initial encounter (principal); R07.81 Pleurodynia; M25.512 Pain in left shoulder; J44.9 Chronic obstructive pulmonary disease, unspecified; M19.90 Unspecified osteoarthritis, unspecified site; E07.9 Disorder of thyroid, unspecified; E78.5 Hyperlipidemia, unspecified; H91.90 Unspecified hearing loss, unspecified ear; I25.2 Old myocardial infarction; F17.200 Nicotine dependence, unspecified, uncomplicated; Z79.51 Long term (current) use of inhaled steroids; Z79.82 Long term (current) use of aspirin; Z79.899 Other long term (current) drug therapy; Z79.890 Hormone replacement therapy; Z91.040 Latex allergy status; Z88.1 Allergy status to other antibiotic agents; Z91.09 Other allergy status, other than to drugs and biological substances; X58.XXXA Exposure to other specified factors, initial encounter
CPT/HCPCS: 71045; 99283

== ENCOUNTER → 2019-11-15 | Outpatient (CLI) | payer MEDICARE, OTHER ==
--- NOTE | 2019-11-15 15:23 | US ---
EXAMINATION TYPE: US thyroid st tissue head/neck DATE OF EXAM: 11/15/2019 COMPARISON: US 2019 CLINICAL HISTORY: E04.1 Nontoxic single thyroid nodule. Thyroid nodules, patient on thyroid meds GLAND SIZE: Right Lobe: 2.0 x 0.9 x 0.9 cm Overall Parenchyma: heterogenous Left Lobe: 2.7 x 0.8 x 0.6 cm Overall Parenchyma: heterogeneous Isthmus Thickness: 0.4 cm NODULES RIGHT: # of nodules measured on right: 1 1. 0.6 X 0.4 x 0.7 cm hyperechoic solid nodule at the mid pole with well-defined margins. This nodu le is wider than tall and shows intranodular vascularity. Prior size: 0.6 x 0.4 x 0.4 cm LEFT: # of nodules measured on left: 0 ISTHMUS: # of nodules measured in the isthmus: 0 Bilateral neck scanned, no evidence of lymphadenopathy. Persistent heterogeneous small size thyroid with stable 6 mm hypoechoic right thyroid nodule. IMPRESSION: As above. No new or enlarging greater than 1 cm solid nodules identified.
== END | disposition home or self-care (01) ==
LOC: RADUSWWP 14:51
PROVIDERS: ATTEND Family Medicine
DX: E04.1 Nontoxic single thyroid nodule (principal)
CPT/HCPCS: 76536

== ENCOUNTER 2020-03-23 08:53 | Day surgery (SDC) | payer MEDICARE, OTHER ==
[2020-03-22 09:01] VITALS: BMI 26.7
--- NOTE | 2020-03-23 00:26 | HP ---
HISTORY AND PHYSICAL CHIEF COMPLAINT: Fluid in the left ear. HISTORY OF PRESENT ILLNESS: The patient is a pleasant 59-year-old female who was recently seen in my office complaining of having a plugged sensation in her left ear. The patient related that approximately 22 years ago she had multiple surgeries including a tympanoplasty with mastoidectomy in the right ear. She has history of having multiple ear infections mainly because as a child she had a cleft palate, which has been repaired. At the time that she was seen in my office, clinical examination of the left ear revealed the patient to have fluid in the left middle ear space indicating chronic left serous otitis media so-called glue ear. The patient was placed on a course of oral antibiotics, namely a Z-Aleksandar and also oral steroids, dexamethasone. She was seen back in the office approximately 2 weeks later and stated that there was no significant improvement. At that point, it was recommended that she undergo a left myringotomy, insertion of a Haley T-type ventilation tube under IV sedation with M.A.C. PAST MEDICAL HISTORY: Past medical history reveals that she has: ALLERGIES: TO PENICILLIN, ERYTHROMYCIN, AND TETRACYCLINE. PREVIOUS SURGERIES: Include cleft palate repair, detached retina repair, anterior cervical fusion, lower back laminectomy, tubal ligation, she is 2 2, para 0 miscarriage. CURRENT MEDICATIONS: Include Lipitor, levothyroxine, isosorbide, baby aspirin, Coreg, gabapentin, Cymbalta, Flexeril, Xyzal, Singulair, Lasix, Prilosec, Benadryl, Astelin nasal spray and Flonase nasal spray. REVIEW OF SYSTEMS: Reveals that the cardiovascular system is positive for hypertension, ASHD. Respiratory system is negative. Gastrointestinal system is positive for GERD (gastroesophageal reflux disorder). Metabolic/ endocrine system is positive for hypercholesterolemia, hyperlipidemia, and hypothyroidism. The remainder of the review of systems is essentially unremarkable. PHYSICAL EXAMINATION: The patient is a pleasant 59-year-old female who was alert, cooperative and well oriented to time and place. HEENT examination: Patient is normocephalic. Right tympanic membrane is unremarkable. Left tympanic membrane is dull with evidence of fluid in the left middle ear space. Pupils are equal, round, and reactive to light and accommodation. Extraocular movements within normal limits. Intranasal examination reveals moderately severe septal deviation with compensatory hypertrophy of the inferior turbinates and a moderate amount of mucus on the mucous membranes and draining down the posterior pharynx. Examination of oropharynx, cranial nerves 2 through 12 and remainder of the head and neck exam are all within normal limits CHEST/CARDIOVASCULAR: Both lung flowers are clear to percussion and auscultation. The patient is in regular sinus rhythm. S1, S2 are present without evidence of any murmurs, S3s or S4s. Peripheral pulses are bilaterally symmetrical within normal limits. ABDOMEN: There is no evidence any masses megaly or tenderness. Abdomen: Soft. SKIN is unremarkable. MUSCULOSKELETAL within normal limits. NEUROLOGICAL within normal limits. PELVIC/RECTAL exam: Pelvic/rectal exam is deferred at this time because the patient has this done on a regular basis at her family physician's office. The remainder of physical exam is unremarkable. IMPRESSION: Chronic left serous otitis media. PLAN: The patient is scheduled undergo a left myringotomy with insertion of a Haley T-type ventilation tube under IV sedation in a.m. Attention RNs in the pre-surgical area: I have ordered for this patient to receive 600 mg of clindamycin IV to be given once an intravenous line has been established. If the pharmacy department sends a different pre-surgical prophylactic antibiotic to the pre- surgical area for this patient, that order should be cancelled and the medication should be returned to the pharmacy department. Please make sure that the patient's account is credited appropriately. I have canceled that order on the patient's preoperative orders, however, the pharmacy department has a tendency to try and override my cancelling of that order and therefore they may still send the medication. I have discussed the risks, benefits and alternative therapies for the above-mentioned procedure and for both sedation/analgesia as well as necessary blood product administration, if indicated, as they pertain to this patient. The patient has indicated his or her understanding and acceptance of the risks and procedures discussed. MMODL / IJN: [id number] /
[~2020-03-23 08:53] MED LIST: Pre Op ABX Message 1 EACH MISC MISCELLANE ONE
[2020-03-23] MEDS ORDERED: LIDOCAINE 1% (10MG/ML) FOR IV START INTRADERMA ONE (09:45)
[2020-03-23] MEDS ORDERED: LACTATED RINGERS 1,000 ML IV ONE (09:46)
[2020-03-23 09:52] VITALS: TEMP 98.2
[2020-03-23] MEDS ORDERED: ONDANSETRON 4 MG/2 ML VIAL ONE (09:55)
[2020-03-23] MEDS ORDERED: DEXAMETHASONE SOD PHOSPHATE 4 MG/ML 1 ML VIAL IV ONE (09:59)
[2020-03-23] MEDS ORDERED: ONDANSETRON 4 MG/2 ML VIAL IVP ONE (09:59)
[2020-03-23] MEDS ORDERED: CLINDAMYCIN 600 MG in DEXTROSE 5% IN WATER 50 ML IVPB ONE ×2 (10:00)
[2020-03-23] MEDS ORDERED: fentaNYL (PF) 50 MCG/ML 2 ML AMP ONE (10:04)
[2020-03-23] MEDS ORDERED: MIDAZOLAM 2 MG/2 ML VIAL ONE (10:04)
[2020-03-23] MEDS ORDERED: PROPOFOL 10 MG/ML 20 ML VIAL IV ONE (10:04)
[2020-03-23] MEDS ORDERED: OFLOXACIN 0.3% OTIC DROPS 5 ML BTL LEFT EAR ONE ×2 (10:22→10:29)
[2020-03-23] MEDS ORDERED: EPINEPHrine 1 MG/ML (MDV) 30 ML VIAL TOPICAL ONE (10:34)
[2020-03-23 11:09] VITALS: BP 156/73; PULSE 85; RESP 16
--- NOTE | 2020-03-24 06:58 | OP ---
OPERATIVE REPORT DATE OF SERVICE: 03/23/2020 PREOPERATIVE DIAGNOSIS: Chronic left serous otitis media. POSTOPERATIVE DIAGNOSIS: Chronic left serous otitis media. ANESTHESIA: IV sedation with MAC. OPERATIVE PROCEDURE: Left myringotomy with insertion of a Haley T-type ventilation tube. SURGEON: Dr. Guerrero. COMPLICATIONS: None. PROCEDURE: The patient was placed on the operating table in supine position. After uneventful IV sedation, satisfactory sedation was obtained. Next, the patient's left ear was draped in the usual and customary fashion. Following this, using the Ze[employer] operating microscope and a #3 aural speculum, the left external auditory canal was cleansed of all wax and debris. Next, the myringotomy knife was used to make an incision in the anterior inferior quadrant of the left tympanic membrane. The left middle ear space was suctioned free of all fluid. It is to be noted that the middle ear space was quite collapsed/decreased and there were some minor adhesions of the tympanic membrane to the medial wall of the left tympanum. Next, a Haley T-type ventilation tube was inserted through the previously made myringotomy incision without difficulty. At this point, the procedure was terminated. There were no intraoperative complications. The patient tolerated the procedure well and was returned to the recovery room in satisfactory condition. MMODL / IJN: [id number] /
== END 2020-03-23 11:27 | disposition home or self-care (01) ==
LOC: OR 08:53
PROVIDERS: ATTEND Otolaryngology
DX: H65.22 Chronic serous otitis media, left ear (principal); Z98.1 Arthrodesis status; Z98.51 Tubal ligation status; Z98.890 Other specified postprocedural states; Z79.82 Long term (current) use of aspirin; Z79.899 Other long term (current) drug therapy; Z79.890 Hormone replacement therapy; Z88.1 Allergy status to other antibiotic agents; Z88.0 Allergy status to penicillin; K21.9 Gastro-esophageal reflux disease without esophagitis; I10 Essential (primary) hypertension; E78.5 Hyperlipidemia, unspecified; I25.2 Old myocardial infarction; E07.9 Disorder of thyroid, unspecified; R55 Syncope and collapse; J44.9 Chronic obstructive pulmonary disease, unspecified; F17.210 Nicotine dependence, cigarettes, uncomplicated; Z79.891 Long term (current) use of opiate analgesic
CPT/HCPCS: 69436; J2250; J1100; J2405; J3010; J2704

== ENCOUNTER → 2020-04-10 | Outpatient (CLI) | payer MEDICARE, OTHER ==
--- NOTE | 2020-04-10 13:10 | CTL ---
EXAMINATION TYPE: CT Low Dose Lung DATE OF EXAM ORDERED: 04/10/2020 HISTORY: . Lung cancer screening CT DLP: 85.[address] CTDI: 2.4 mGy Automated exposure control for dose reduction was used. SCREENING VISIT: Follow-up COMPARISON: 03/31/2019 TECHNIQUE: Low dose computed tomography scan was performed through the chest at 1 mm thick sections a nd reconstructed images in the coronal plane at [address] DIAGNOSTIC QUALITY: Satisfactory FINDINGS: LUNG NODULES: 1. There is a somewhat rounded density in the posterior left apex present previously and stable. Seri es 4 image 33. 2. 0.5 cm nodule posterior right upper lung field. Series 4 image 77. LUNGS: COPD: Severity: Mild Fibrosis: Severity: Minimal Lymph nodes: None Other findings: None RIGHT PLEURAL SPACE: Effusion: None Calcification: None Thickening: Pneumothorax: None LEFT PLEURAL SPACE: Effusion: None Calcification: None Thickening: None Pneumothorax: None HEART: Heart Size: Normal Coronary calcification: Moderate Pericardial effusion: None OTHER FINDINGS: Upper abdomen: Normal Bony thorax: Normal Supraclavicular region: Normal Other: Ascending thoracic aorta at the level the main pulmonary artery measures 3.2 cm. The main pul monary artery at the bifurcation measures 2.7 cm. IMPRESSION: Stable findings FOLLOW UP CT CHEST RECOMMENDATION: Low dose CT chest [address] LUNG RAD: 2
== END | disposition home or self-care (01) ==
LOC: RADCTMAIN 12:10
PROVIDERS: ATTEND Family Medicine
DX: Z12.2 Encounter for screening for malignant neoplasm of respiratory organs (principal); F17.210 Nicotine dependence, cigarettes, uncomplicated
CPT/HCPCS: 71271

== ENCOUNTER → 2020-05-15 | Outpatient (CLI) | payer MEDICARE, OTHER ==
--- NOTE | 2020-05-16 08:27 | US ---
EXAMINATION TYPE: US thyroid st tissue head/neck DATE OF EXAM: 05/15/2020 COMPARISON: 10/30/2019 CLINICAL HISTORY: 60-year-old female E04.1 Nontoxic single thyroid nodule,R49.0, E03.9. Follow-up thy roid nodule TECHNIQUE: Multiple sonographic images of the thyroid gland are obtained. FINDINGS: GLAND SIZE: Right Lobe: 2.3 x 0.9 x 1.0 cm Overall Parenchyma: heterogenous Left Lobe: 2.9 x 0.8 x 0.6 cm Overall Parenchyma: heterogeneous Isthmus Thickness: 0.4 cm The gland is small and lobulated. NODULES RIGHT: # of nodules measured on right: 1 1. 0.6 X 0.5 x 0.6 cm, mid , solid, hyperechoic nodule, which is wider than tall, with smooth ted ns, without echogenic foci. Prior size: 0.6 x 0.4 x 0.7 cm LEFT: # of nodules measured on left: 0 ISTHMUS: # of nodules measured in the isthmus: 0 IMPRESSION: 1. Solitary 6 mm echogenic nodule on the right. This is a TR 3 nodule and is unchanged from previous. 2. Small, lobulated thyroid gland.
== END ==
LOC: RADUSWWP 16:36
PROVIDERS: ATTEND Family Medicine
DX: E04.1 Nontoxic single thyroid nodule (principal)
CPT/HCPCS: 76536

== ENCOUNTER → 2021-06-10 | Outpatient (CLI) | payer MEDICARE, OTHER ==
--- NOTE | 2021-06-11 10:58 | MM ---
Reason for exam: screening (asymptomatic). Last mammogram was performed 2 years and 1 month ago. History: Patient is postmenopausal. Family history of breast cancer in sister at age 56. Took estrogen for 1 year 6 months. Physical Findings: A clinical breast exam by your physician is recommended on an annual basis and results should be correlated with mammographic findings. MG 3D Screening Mammo W/Cad Bilateral CC and MLO view(s) were taken. Prior study comparison: May 12, 2019, right breast MG 3d diag mammo w/cad RT. October 27, 2018, right breast MG 3d work up w/cad RT. No significant changes when compared with prior studies. ASSESSMENT: Benign, BI-RAD 2 RECOMMENDATION: Routine screening mammogram of both breasts in 1 year.
== END | disposition home or self-care (01) ==
LOC: RADMAMWWP 10:40
PROVIDERS: ATTEND Family Medicine
DX: Z12.31 Encounter for screening mammogram for malignant neoplasm of breast (principal); Z78.0 Asymptomatic menopausal state; Z80.3 Family history of malignant neoplasm of breast
CPT/HCPCS: 77063; 77067

== ENCOUNTER → 2021-06-28 | Outpatient (CLI) | payer MEDICARE, OTHER ==
--- NOTE | 2021-06-28 14:21 | CTL ---
EXAMINATION TYPE: CT Low Dose Lung DATE OF EXAM ORDERED: 06/28/2021 HISTORY: Z 87.891. Lung cancer screening CT DLP: 82.[address] CTDI: 2.40 mGy Automated exposure control for dose reduction was used. SCREENING VISIT: 3 COMPARISON: Previous exam 04/10/2020 TECHNIQUE: Low dose computed tomography scan was performed through the chest at 1 mm thick sections a nd reconstructed images in multiple planes at 1 mm and [address] DIAGNOSTIC QUALITY: Satisfactory FINDINGS: LUNG NODULES: None. LUNGS: COPD: Severity: Mild Fibrosis: Severity: Mild, apical scarring is again seen Lymph nodes: None Other findings: None RIGHT PLEURAL SPACE: Effusion: None Calcification: None Thickening: None Pneumothorax: None LEFT PLEURAL SPACE: Effusion: None Calcification: None Thickening: None Pneumothorax: None HEART: Heart Size: Normal Coronary Calcification: Moderate Pericardial Effusion: None OTHER FINDINGS: Upper abdomen: None Bony thorax: None Supraclavicular region: None Other: None IMPRESSION: Benign, follow-up in one year CT LUNG RAD AND CT CHEST RECOMMENDATION: 2 S Modifier (other clinically significant findings):
== END | disposition home or self-care (01) ==
LOC: RADCTMAIN 12:14
PROVIDERS: ATTEND Family Medicine
DX: Z12.2 Encounter for screening for malignant neoplasm of respiratory organs (principal); Z87.891 Personal history of nicotine dependence
CPT/HCPCS: 71271

== ENCOUNTER → 2021-06-28 | Outpatient (CLI) | payer MEDICARE, OTHER ==
--- NOTE | 2021-06-28 13:24 | US ---
EXAMINATION TYPE: US thyroid st tissue head/neck DATE OF EXAM: 06/28/2021 COMPARISON: NONE CLINICAL HISTORY: E03.9 HYPOTHYROIDISM, UNSPECIFIED. on meds for years, f/u exam GLAND SIZE: Right Lobe: 2.3 x 0.6 x 0.6 cm Overall Parenchyma: heterogenous Left Lobe: 2.3 x 0.7 x 0.9 cm Overall Parenchyma: heterogeneous Isthmus Thickness: 0.3 cm NODULES RIGHT: # of nodules measured on right: 1 1. 0.6 X 0.5 x 0.3 cm solid or almost completely solid, hyperechoic nodule, which is wider than barbara l, with smooth margins, without echogenic foci. TR 3 Prior size: 0.6 x 0.5 x 0.6 cm LEFT: # of nodules measured on left: 0 ISTHMUS: # of nodules measured in the isthmus: 0 Bilateral neck scanned, no evidence of lymphadenopathy. IMPRESSION: Mildly suspicious nodule, Consider follow-up thyroid scan. 2017 ACR TI-RADS LEVEL: TR-RADS 3 - Mildly Suspicious: Follow if > 1.5 cm, FNA if > 2.5 cm *Highest TI-RADS level nodule reported
== END | disposition home or self-care (01) ==
LOC: RADUSWWP 12:42
PROVIDERS: ATTEND Family Medicine
DX: E03.9 Hypothyroidism, unspecified (principal)
CPT/HCPCS: 76536

== ENCOUNTER 2021-07-12 09:15 | Day surgery (SDC) | payer MEDICARE, OTHER ==
[2021-07-11 11:40] VITALS: BMI 29.9
--- NOTE | 2021-07-12 00:44 | HP ---
HISTORY AND PHYSICAL CHIEF COMPLAINT: Perforation of the left tympanic membrane. HISTORY OF PRESENT ILLNESS: This patient is a very pleasant 61-year-old female who is well known to my office. The patient recently was seen complaining of having had several ear infections over the course of the past year. At the time that she was seen in my office, there was no evidence of any drainage. She was treated by her family physician with multiple courses of oral antibiotics. She has a history of having a perforation in the left ear. She has also had a left tympanoplasty with mastoidectomy. The patient has had multiple tubes in both ears. At the time that she was seen in my office, clinical examination with attention to the left ear revealed that the patient had a small perforation encompassing 3 to 5 mm of the left tympanic membrane inferiorly. The middle ear space was dry and free of any infection, fluid or cholesteatoma. It was recommended that the patient undergo insertion of a Kartush patch under IV sedation with M.A.C. PAST MEDICAL HISTORY: The patient has ALLERGIES TO PENICILLIN, ERYTHROMYCIN AND TETRACYCLINES. Previous surgeries include multiple bilateral myringotomies with insertion of ventilation tubes, cleft palate, cleft lip repair, detached retina repair, anterior cervical fusion, lower back laminectomy, tubal ligation, and a left tympanoplasty with mastoidectomy. She is 2 2 para 0 miscarriage. CURRENT MEDICATIONS: Current medications include Lipitor, levothyroxine, isosorbide, one baby aspirin daily, Coreg, gabapentin, Cymbalta, flexeril, Xyzal, Singulair, Lasix, Prilosec, benadryl, Astelin nasal spray and Flonase nasal spray. REVIEW OF SYSTEMS: Positive with respect to the gastrointestinal system for GERD (gastroesophageal reflux disorder). The metabolic/endocrine system is positive for hypothyroidism and hypercholesterolemia. The musculoskeletal system is positive for osteoarthritis. The remainder of the review of systems is essentially unremarkable. PHYSICAL EXAMINATION: This patient is a 61-year-old female who is alert and cooperative. HEENT EXAMINATION: The patient is normocephalic. Examination of the right ear reveals the right tympanic membrane and middle ear space is free of any infection or fluid. Examination of the left ear reveals the left tympanic membrane has a 3 to 5 mm inferior perforation. The left middle ear space is free of any infection, fluid or cholesteatoma. Pupils are equal, round and reactive to light and accommodation. Extraocular movements are within normal limits. Intranasal examination reveals moderate septal deviation with compensatory hypertrophy of the inferior turbinates and a moderate amount of mucus on the mucous membranes and draining down the posterior pharyngeal wall. Cranial nerves 2 through 12 and the remainder of the head and neck exam are within normal limits. CHEST/CARDIOVASCULAR: Both lung flowers are clear to percussion and auscultation. The patient has a regular sinus rhythm. S1 and S2 are present without evidence of any murmurs, S3s or S4s. Peripheral pulses are bilaterally symmetrical and within normal limits. ABDOMEN: There is no evidence any masses, megaly or tenderness. The abdomen is soft. Skin is unremarkable. MUSCULOSKELETAL AND NEUROLOGICAL: Within normal limits. Pelvic/rectal examination is deferred at this time because the patient has this done on a regular basis at her family physician's office. The remainder of physical exam is unremarkable. IMPRESSION: Perforation of the left tympanic membrane. PLAN: The patient is scheduled to undergo insertion of a Kartush patch to a perforation of the left tympanic membrane under IV sedation with M.A.C. ATTENTION RNS IN THE PRE-SURGICAL AREA: I have not ordered any pre-surgical prophylactic antibiotics for this patient. If the pharmacy department sends any pre- surgical prophylactic antibiotics to the pre-surgical area for this patient, please cancel that order and return the medication to the pharmacy department. Also make sure that the patient's account is credited appropriately. I have discussed the risks, benefits and alternative therapies for the above-mentioned procedure and for both sedation/analgesia as well as necessary blood product administration, if indicated, as they pertain to this patient. The patient has indicated his or her understanding and acceptance of the risks and procedures discussed. MMODL / IJN: [id number] /
[~2021-07-12 09:15] MED LIST changes: +DEXAMETHASONE SOD PHOSPHATE 4 MG/ML 1 ML VIAL IV ONE; +HYDROmorphone 0.5 MG/0.5 ML SYRINGE IVP PRN; +LACTATED RINGERS 1,000 ML IV SCH; +MIDAZOLAM 2 MG/2 ML VIAL IV PRN; +ONDANSETRON 4 MG/2 ML VIAL IVP ONE; +SCOPOLAMINE 1 MG/72 HR PATCH TRANSDERM ONE
[2021-07-12 09:47] VITALS: TEMP 96.8
[2021-07-12 10:22] LABS: Basophils # (A) 0.1 k/uL (0-0.2); Basophils % (A) 1 %; Eosinophils # (A) 0.2 k/uL (0-0.7); Eosinophils % (A) 3 %; HCT 40.6 % (34.0-46.0); HGB 13.1 gm/dL (11.4-16.0); Lymphocytes # (A) 2.2 k/uL (1.0-4.8); Lymphocytes % (A) 34 %; MCH 30.7 pg (25.0-35.0); MCHC 32.4 g/dL (31.0-37.0); MCV 94.6 fL (80.0-100.0); Mean Platelet Volume 7.6; Monocytes # (A) 0.5 k/uL (0-1.0); Monocytes % (A) 8 %; Neutrophils # (A) 3.3 k/uL (1.3-7.7); Neutrophils % (A) 51 %; Platelet Count 210 k/uL (150-450); RBC 4.29 m/uL (3.80-5.40); RDW 13.5 % (11.5-15.5); WBC 6.4 k/uL (3.8-10.6)
[2021-07-12] MEDS ORDERED: OFLOXACIN 0.3% OPHTH DROPS 5 ML BOTTLE LEFT EAR ONE ×2 (10:50→11:15)
[2021-07-12] MEDS ORDERED: PROPOFOL 10 MG/ML 20 ML VIAL IV ONE (10:55)
[2021-07-12] MEDS ORDERED: PHENYLEPHRINE-0.9% NACL SYG 1,000 MCG/10 ML SYRINGE ONE (10:55)
[2021-07-12] MEDS ORDERED: MIDAZOLAM 2 MG/2 ML VIAL ONE (10:55)
[2021-07-12] MEDS ORDERED: fentaNYL (PF) 50 MCG/ML 2 ML AMP ONE (10:55)
[2021-07-12 11:48] VITALS: PULSE 88; RESP 16
[2021-07-12 12:06] VITALS: BP 145/82
--- NOTE | 2021-07-12 18:24 | OP ---
OPERATIVE REPORT PREOPERATIVE DIAGNOSIS: Perforation of the left tympanic membrane. POSTOPERATIVE DIAGNOSIS: Perforation of the left tympanic membrane. ANESTHESIA: IV sedation with M.A.C. OPERATIVE PROCEDURE: Insertion of a 5 mm Kartush patch to a perforation of the left tympanic membrane. OPERATING SURGEON: Dr. Guerrero. COMPLICATIONS: None. ESTIMATED BLOOD LOSS: None. OPERATIVE PROCEDURE DESCRIPTION: The patient was placed on the operating table in supine position. After uneventful induction and IV sedation, satisfactory sedation was obtained. Next the patient's left ear was prepped and draped in the usual and customary fashion. Following this, using a #3 aural speculum and the Zeiss operating microscope, the left external auditory canal was cleansed of all wax and debris. The perforation was noted to be located medially and encompassing approximately 3 to 4 mm of the left tympanic membrane. In addition to this, there was significant scar tissue noted around the perforation and in the middle ear space. The middle ear ossicles appeared to be intact. Next a 5 mm Kartush patch was selected and this was modified so as to fit the unusual perforation. Next the Kartush patch was grasped with a pair of alligator forceps and was carefully inserted into the perforation in the usual and customary fashion. A Roach needle was used to make sure that the patch was seated properly. At this point the procedure was terminated. There were no intraoperative complications. The patient tolerated the procedure well and was returned to the recovery room in satisfactory condition. MMODL / IJN: [id number] /
== END 2021-07-12 12:14 | disposition home or self-care (01) ==
LOC: OR 09:15
PROVIDERS: ATTEND Otolaryngology
DX: H72.92 Unspecified perforation of tympanic membrane, left ear (principal); I25.2 Old myocardial infarction; I10 Essential (primary) hypertension; E78.5 Hyperlipidemia, unspecified; J44.9 Chronic obstructive pulmonary disease, unspecified; E07.9 Disorder of thyroid, unspecified; M19.90 Unspecified osteoarthritis, unspecified site; K21.9 Gastro-esophageal reflux disease without esophagitis; Z88.8 Allergy status to other drugs, medicaments and biological substances; Z79.82 Long term (current) use of aspirin; Z79.899 Other long term (current) drug therapy
CPT/HCPCS: 69610; 85025; J2250; J1100; J2405; J3010; J2370; J2704

== ENCOUNTER → 2021-12-24 | Outpatient (CLI) | payer MEDICARE, OTHER ==
--- NOTE | 2021-12-24 16:36 | US ---
EXAMINATION TYPE: US thyroid st tissue head/neck DATE OF EXAM: 12/24/2021 COMPARISON: 06/28/2021 CLINICAL HISTORY: 61-year-old female E04.1 THYROID NODULE. Thyroid nodule. Patient takes levothyroxin e. She states she has difficulty swallowing. TECHNIQUE: Multiple sonographic images of the thyroid gland are obtained. FINDINGS: GLAND SIZE: Right Lobe: 2.1 x 0.6 x 0.6 cm Overall Parenchyma: heterogenous Left Lobe: 2.7 x 0.5 x 0.6 cm Overall Parenchyma: heterogeneous Isthmus Thickness: 0.18 cm NODULES RIGHT: # of nodules measured on right: 1 1. 0.3 x 0.3 x 0.2 cm, mid solid or almost completely solid, hyperechoic, which is wider than tall, with smooth margins, without echogenic foci. Prior size: 0.6 x 0.5 x 0.3 cm LEFT: # of nodules measured on left: 0 ISTHMUS: # of nodules measured in the isthmus: 0 Bilateral neck scanned, hypoechoic area seen within the left lateral neck: 1.2 x 0.5 x 0.6 cm. IMPRESSION: 1. Very small heterogeneous thyroid gland. Findings suggest chronic hypothyroidism. 2. A solitary solid TR3 nodule in the right lobe measures 3 mm, smaller compared to 6 mm, previously. 3. Mildly thickened but nonenlarged 1.2 x 0.6 cm lymph node along the left side of the neck. Consider 3 month follow-up ultrasound to reassess.
== END | disposition home or self-care (01) ==
LOC: RADUSWWP 14:21
PROVIDERS: ATTEND Family Medicine
DX: E04.1 Nontoxic single thyroid nodule (principal)
CPT/HCPCS: 76536

== ENCOUNTER → 2022-03-14 | Outpatient (CLI) | payer MEDICARE, OTHER ==
--- NOTE | 2022-03-14 14:37 | CT ---
EXAMINATION TYPE: CT iac w con DATE OF EXAM: 03/14/2022 COMPARISON: None HISTORY: right ear infection CT DLP: 150 mGycm Automated exposure control for dose reduction was used. CONTRAST: CT scan of the IACs is performed with IV Contrast, patient injected with 70 mL of Isovue 300. FINDINGS: The mastoid air cells are hypoplastic bilaterally but there is no fluid or osseous destruction. The r ight scutum appears slightly blunted and there is possible mild thickening right tympanic membrane. T hese findings suggest the possibility of mild chronic inflammatory changes. . The middle ear ossicles are symmetric and unremarkable. There is no evidence of suspicious surroundi ng soft tissue density to suggest cholesteatoma. . The cochlea and the semicircular canals are symm etric and unremarkable. Vestibular aqueduct and internal carotid canal appear unremarkable. Temporo mandibular joints are maintained bilaterally. The external auditory canals are patent bilaterally IMPRESSION: Possible evidence for mild chronic inflammatory change involving the right tympanic membr ane is described above. No other significant abnormality seen.
== END | disposition home or self-care (01) ==
LOC: RADCTMAIN 12:27
PROVIDERS: ATTEND Otolaryngology
DX: H71.90 Unspecified cholesteatoma, unspecified ear (principal); H91.90 Unspecified hearing loss, unspecified ear; H93.19 Tinnitus, unspecified ear
CPT/HCPCS: 70481; Q9967

== ENCOUNTER → 2022-06-27 | Outpatient (CLI) | payer MEDICARE, OTHER ==
--- NOTE | 2022-06-30 08:32 | MM ---
Reason for Exam: Screening (asymptomatic). Last screening mammogram was performed 12 month(s) ago. Patient History: Menarche at age 16. First Full-Term at age 19. Postmenopausal. Estrogen for 1 year, 6 months. Sister had breast cancer, age 56. Risk Values: Isatu 5 year model risk: 2.4%. NCI Lifetime model risk: 12.1%. Prior Study Comparison: 10/27/2018 Right Diagnostic Mammogram, [facility]. 05/12/2019 Right Diagnostic Mammogram, [facility]. 06/10/2021 Bilateral Screening Mammogram, [facility]. Tissue Density: The breast tissue is heterogeneously dense. This may lower the sensitivity of mammography. Findings: Analyzed By CAD. There is no suspicious group of microcalcifications or new suspicious mass in either breast. Overall Assessment: Negative, BI-RAD 1 Management: Screening Mammogram of both breasts in 1 year. A clinical breast exam by your physician is recommended on an annual basis and results should be correlated with mammographic findings. [facility] will attempt to contact patient to return for supplemental views and ultrasound if indicated. Electronically signed and approved by: Eran Connolly DO
== END | disposition home or self-care (01) ==
LOC: RADMAMWWP 12:45
PROVIDERS: ATTEND Family Medicine
DX: Z12.31 Encounter for screening mammogram for malignant neoplasm of breast (principal); Z78.0 Asymptomatic menopausal state; Z80.3 Family history of malignant neoplasm of breast
CPT/HCPCS: 77063; 77067

== ENCOUNTER → 2023-07-17 | Outpatient (CLI) | payer MEDICARE, OTHER ==
--- NOTE | 2023-07-20 10:38 | MM ---
Reason for Exam: Screening (asymptomatic). Last mammogram was performed 1 year(s) and 1 month(s) ago. Patient History: Menarche at age 16. First Full-Term at age 19. Postmenopausal. Estrogen for 1 year, 6 months. Sister had breast cancer, age 56. Risk Values: Isatu 5 year model risk: 2.5%. NCI Lifetime model risk: 11.8%. Prior Study Comparison: 05/12/2019 Right Diagnostic Mammogram, [facility]. 06/10/2021 Bilateral Screening Mammogram, [facility]. 06/27/2022 Bilateral MG 3D screening mammo w/cad, [facility]. Tissue Density: There are scattered areas of fibroglandular density. Findings: Analyzed By CAD. Right breast: There is no suspicious group of microcalcifications or new suspicious mass. Left breast: There is no suspicious group of microcalcifications or new suspicious mass. Overall Assessment: Negative, BI-RAD 1 Management: Screening Mammogram of both breasts in [address] [facility] will attempt to contact patient to return for supplemental views and ultrasound if indicated. Patient should continue monthly self-breast exams. A clinical breast exam by your physician is recommended on an annual basis. This exam should not preclude additional follow-up of suspicious palpable abnormalities. Note on Isatu scores and lifetime risk: 1. A Isatu score greater than 3% is considered moderate risk. If this is the case, consider specialist referral to assess eligibility for a risk reducing agent. 2. If overall lifetime risk for the development of breast cancer is 20% or higher, the patient may qualify for future screening with alternating mammogram and breast MRI. Electronically signed and approved by: Eran Connolly DO
== END | disposition home or self-care (01) ==
LOC: RADMAMWWP 13:41
PROVIDERS: ATTEND Family Medicine
DX: Z12.31 Encounter for screening mammogram for malignant neoplasm of breast (principal); Z78.0 Asymptomatic menopausal state; Z80.3 Family history of malignant neoplasm of breast
CPT/HCPCS: 77063; 77067

== ENCOUNTER → 2024-05-25 | Outpatient (CLI) | payer MEDICARE, OTHER ==
--- NOTE | 2024-05-25 15:32 | US ---
EXAMINATION TYPE: US thyroid st tissue head/neck DATE OF EXAM: 05/25/2024 COMPARISON: most recent: 12/24/21 CLINICAL INDICATION: Female, 64 years old with history of E04.1 NONTOXIC SINGLE THYROID NODULE; nodul e TECHNIQUE: Grayscale and color Doppler imaging of the thyroid gland. FINDINGS: GLAND SIZE: Right Lobe: 2.0 x 0.7 x 0.5 cm Overall Parenchyma: heterogeneous Left Lobe: 2.5 x 0.6 x 0.5 cm Overall Parenchyma: heterogeneous Isthmus Thickness: 0.24 cm NODULES RIGHT: # of nodules measured on right: 0 LEFT: # of nodules measured on left: 0 ISTHMUS: # of nodules measured in the isthmus: 0 Bilateral neck scanned, no evidence of lymphadenopathy. IMPRESSION: Diminutive and heterogenous thyroid lobes could reflect changes of thyroiditis. Correlate clinically. 2017 ACR TI-RADS LEVEL: *Highest TI-RADS level nodule reported [email or web address] [facility], , 05/25/2024 3:29 PM
== END | disposition home or self-care (01) ==
LOC: RADUSWWP 13:59
PROVIDERS: ATTEND Family Medicine
DX: E04.2 Nontoxic multinodular goiter (principal)
CPT/HCPCS: 76536

== ENCOUNTER → 2024-07-18 | Outpatient (CLI) | payer MEDICARE, OTHER ==
--- NOTE | 2024-07-18 14:22 | MM ---
Reason for Exam: Screening (asymptomatic). Last screening mammogram was performed 12 month(s) ago. Patient History: Menarche at age 16. First Full-Term at age 19. Postmenopausal. Estrogen for 1 year, 6 months. Sister had breast cancer, age 56. Sister had breast cancer, age 59. Risk Values: Isatu 5 year model risk: 6.6%. NCI Lifetime model risk: 26.8%. Prior Study Comparison: 06/10/2021 Bilateral Screening Mammogram, [facility]. 06/27/2022 Bilateral MG 3D screening mammo w/cad, [facility]. 07/17/2023 Bilateral MG 3D screening mammo w/cad, [facility]. Tissue Density: There are scattered areas of fibroglandular density. Findings: Analyzed By CAD. There are stable sub-5 mm circumscribed masses in the bilateral breasts. There is no suspicious new group of microcalcifications or new suspicious mass in either breast. Overall Assessment: Benign, BI-RAD 2 Management: Screening Mammogram of both breasts in 1 year. . Patient should continue monthly self-breast exams. A clinical breast exam by your physician is recommended on an annual basis. This exam should not preclude additional follow-up of suspicious palpable abnormalities. Note on Isatu scores and lifetime risk: 1. A Isatu score greater than 3% is considered moderate risk. If this is the case, consider specialist referral to assess eligibility for a risk reducing agent. 2. If overall lifetime risk for the development of breast cancer is 20% or higher, the patient may qualify for future screening with alternating mammogram and breast MRI. [facility], , 07/18/2024 2:19 PM. Electronically signed and approved by: Garfield Valladares M.D.
== END | disposition home or self-care (01) ==
LOC: RADMAMWWP 12:34
PROVIDERS: ATTEND Family Medicine
DX: Z12.31 Encounter for screening mammogram for malignant neoplasm of breast (principal); R92.323 Mammographic fibroglandular density, bilateral breasts; Z78.0 Asymptomatic menopausal state; Z80.3 Family history of malignant neoplasm of breast
CPT/HCPCS: 77063; 77067

== ENCOUNTER 2024-09-25 09:55 | Emergency (ER) | payer MEDICARE, OTHER ==
[2024-09-25 10:13] VITALS: RESP 18
--- NOTE | 2024-09-25 10:46 | ED ---
General Adult HPI - General Chief complaint: ENT Stated complaint: Ear/Throat Pain Time Seen by Provider: 09/25/24 10:11 Source: patient, RN notes reviewed Mode of arrival: ambulatory Limitations: no limitations - History of Present Illness Initial comments: 64-year-old female presenting to the emergency department with complaints of bilateral ear pain and a sore throat. Patient states that symptoms started on and have been progressing. She states that she feels that she has an ear infection that she frequently gets these. She states that her hearing feels muffled. She denies drainage from bilateral ears. Patient endorses pain with swallowing. She denies difficulty breathing, chest pain, heart palpitations, fevers, chills, nausea, vomiting. Denies recent antibiotic use. Patient does wear hearing aids - Related Data Home Medications Medication Instructions Recorded Confirmed Aspirin 81 mg PO DAILY 03/06/14 07/11/21 Atorvastatin [Lipitor] 80 mg PO DAILY 03/06/14 07/12/21 carvediloL [Coreg] 3.125 mg PO BID 03/06/14 07/12/21 Fluticasone Nasal [place] [Flonase 1 spray EA NOSTRIL DAILY 04/25/15 07/12/21 Nasal [place]] Hydrocodone/Acetaminophen [[place] 1 tab PO TID 04/25/15 07/12/21 10-325] Isosorbide Mononitrate ER [Imdur] 30 mg PO QAM 04/25/15 07/12/21 Levocetirizine Dihydrochloride 5 mg PO DAILY 04/25/15 07/12/21 [Xyzal] Azelastine/Fluticasone 1 spray EA NOSTRIL DAILY 03/22/20 07/12/21 [Azelastin-Flutic 137-50Mcg Spr] DULoxetine HCL [Cymbalta] 60 mg PO QAM 03/22/20 07/12/21 Gabapentin [Neurontin] 600 mg PO TID 03/22/20 07/12/21 Losartan Potassium 25 mg PO QAM 03/22/20 07/12/21 Ascorbic Acid [Vitamin C] 1,000 mg PO DAILY 03/18/21 07/11/21 Cholecalciferol [Vitamin D3 (25 25 mcg PO DAILY 03/18/21 07/12/21 Mcg = 1000 Iu)] Ezetimibe [Zetia] 10 mg PO DAILY 03/18/21 07/12/21 Levothyroxine Sodium 137 mcg PO QAM 03/18/21 07/12/21 Montelukast [Singulair] 10 mg PO DAILY 03/18/21 07/12/21 Multivitamins, Thera [Multivitamin 1 tab PO DAILY 03/18/21 07/12/21 (formulary)] Vitamin B Complex 2 each PO DAILY 03/18/21 07/12/21 Vitamin E (Dl,Tocopheryl Acet) 400 unit PO DAILY 03/18/21 07/12/21 [Vitamin E (400 Iu = 180 mg)] diphenhydrAMINE [Benadryl] 25 mg PO DAILY PRN 03/18/21 07/12/21 methocarbamoL [Robaxin-750] 750 mg PO TID 03/18/21 07/12/21 Omeprazole 40 mg PO DAILY 07/11/21 07/12/21 Previous Rx's Medication Instructions Recorded Cefuroxime [Ceftin] 250 mg PO BID 7 Days #14 tab 09/25/24 Allergies Allergy/AdvReac Type Severity Reaction Status Date / Time ampicillin Allergy Unknown Verified 07/12/21 09:40 Childhood erythromycin base Allergy Nausea, Verified 07/12/21 09:40 stomach cramps sulfamethoxazole Allergy Unknown Verified 09/25/24 10:10 [From Bactrim] Tetracyclines Allergy Nausea Verified 07/12/21 09:40 trimethoprim [From Bactrim] Allergy Unknown Verified 09/25/24 10:10 perfumes Allergy Unknown Uncoded 07/12/21 09:40 Review of Systems ROS Statement: Those systems with pertinent positive or pertinent negative responses have been documented in the HPI. ROS Other: All systems not noted in ROS Statement are negative. Past Medical History Past Medical History: Asthma, COPD, GERD/Reflux, Hearing Disorder / Deafness, Hyperlipidemia, Hypertension, Myocardial Infarction (ND), Osteoarthritis (OA), Pneumonia, Syncope, Thyroid Disorder Additional Past Medical History / Comment(s): BACK PAIN,NEUROPATHY. 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 Last Myocardial Infarction Date:: 2011 History of Any Multi-Drug Resistant Organisms: None Reported Past Surgical History: Back Surgery, Heart Catheterization With Stent, Orthopedic Surgery, Tubal Ligation Additional Past Surgical History / Comment(s): HEART CATH- 3 stents, cleft palette repair, several ear surgeries(tubes mostly, ear drum reconstruction) eye surgery (detached retina), nose surgery, plate and 2 screws in neck, cortisone shots in back, Past Anesthesia/Blood Transfusion Reactions: Family History of Problems w/ Anesthesia, Postoperative Nausea & Vomiting (PONV) Additional Past Anesthesia/Blood Transfusion Reaction / Comment(s): SISTER- WAKES UP DURING SURGERY " Date of Last Stent Placement:: metal stent 2011, March 2012 1 placed, February 2014 1 placed Past Psychological History: Anxiety, Depression Smoking Status: Vaper Past Alcohol Use History: Occasional Past Drug Use History: None Reported - Past Family History Mother Family Medical History: Congestive Heart Failure (CHF) Father Family Medical History: Congestive Heart Failure (CHF) Sister(s) Family Medical History: Cancer Additional Family Medical History / Comment(s): 3 SISTER THAT EACH HAD CANCER General Exam Limitations: no limitations Expanded TM/Canal exam: Erythema: Right TM, Left TM, Canal Discharge: Right TM, Left TM, Canal Tenderness: Right TM, Left TM Throat exam: tonsillar erythema, tonsillomegaly, tonsillar exudate. negative: normal inspection Neck exam: Present: normal inspection. Absent: tenderness, meningismus, lymphadenopathy Respiratory exam: Present: normal lung sounds bilaterally. Absent: respiratory distress, wheezes, rales, rhonchi, stridor Cardiovascular Exam: Present: regular rate, normal rhythm, normal heart sounds. Absent: systolic murmur, diastolic murmur, rubs, gallop, clicks GI/Abdominal exam: Present: soft, normal bowel sounds. Absent: distended, tenderness, guarding, rebound, rigid Course Vital Signs 09/25/24 09/25/24 10:10 11:14 Temperature 98.2 F 98.0 F Pulse Rate 86 84 Respiratory 18 18 Rate Blood Pressure 95/62 101/80 O2 Sat by Pulse 94 L 95 Oximetry Medical Decision Making - Medical Decision Making Was pt. sent in by a medical professional or institution (, PA, OBJECTIVE C DEVELOPER, urgent care, hospital, or shelter...) When possible be specific @ -No Did you speak to anyone other than the patient for history (EMS, parent, family, police, friend...)? What history was obtained from this source @ -No Did you review nursing and triage notes (agree or disagree)? Why? @ -I reviewed and agree with nursing and triage notes Were old charts reviewed (outside hosp., previous admission, EMS record, old EKG, old radiological studies, urgent care reports/EKG's, shelter records)? Report findings @ -No old charts were reviewed Differential Diagnosis (chest pain, altered mental status, abdominal pain women, abdominal pain men, vaginal bleeding, weakness, fever, dyspnea, syncope, headache, dizziness, GI bleed, back pain, seizure, CVA, palpatations, mental health, musculoskeletal)? @ -Otitis media, otitis externa, malignant otitis externa, strep pharyngitis, pharyngitis, COVID, this list is not all inclusive EKG interpreted by me (3pts min.). @ -none X-rays interpreted by me (1pt min.). @ -None done CT interpreted by me (1pt min.). @ -None done U/S interpreted by me (1pt. min.). @ -None done What testing was considered but not performed or refused? (CT, X-rays, U/S, labs)? Why? @ -None What meds were considered but not given or refused? Why? @ -None Did you discuss the management of the patient with other professionals (professionals i.e. , PA, OBJECTIVE C DEVELOPER, lab, RT, psych nurse, social media designer, psychology technician, teacher, navigation officer, director case management)? Give summary @ -No Was smoking cessation discussed for >3mins.? @ -No Was critical care preformed (if so, how long)? @ -No Were there social determinants of health that impacted care today? How? (Homelessness, low income, unemployed, alcoholism, drug addiction, transportation, low edu. Level, literacy, decrease access to med. care, senior living, rehab)? @ -No Was there de-escalation of care discussed even if they declined (Discuss DNR or withdrawal of care, Hospice)? DNR status @ -No What co-morbidities impacted this encounter? (DM, HTN, Smoking, COPD, CAD, Cancer, CVA, ARF, Chemo, Hep., AIDS, mental health diagnosis, sleep apnea, morbid obesity)? @ -None Was patient admitted / discharged? Hospital course, mention meds given and route, prescriptions, significant lab abnormalities, going to OR and other pertinent info. @ -Discharge. 64-year-old female presents emergency room with complaints of sore throat bilateral ear pain. Patient's bilateral ears canals are edematous with maceration. TMs are intact and consistent with otitis externa of bilateral ears. Additionally, patient's throat is erythematous and bilateral tonsils are erythematous, edematous, with exudates. Patient will be treated for strep with amoxicillin. She is provided with Ciprodex topical antibiotic drops and dexamethasone. Case discussed with my attending Dr. Rowan. Undiagnosed new problem with uncertain prognosis? @ -No Drug Therapy requiring intensive monitoring for toxicity (Heparin, Nitro, Insulin, Cardizem)? @ -No Were any procedures done? @ -No Diagnosis/symptom? @ -Strep pharyngitis, bilateral otitis external Acute, or Chronic, or Acute on Chronic? @ -acute Uncomplicated (without systemic symptoms) or Complicated (systemic symptoms)? @ -Uncomplicated Side effects of treatment? @ -No Exacerbation, Progression, or Severe Exacerbation? @ -No Poses a threat to life or bodily function? How? (Chest pain, [place], [place], pneumonia, PE, COPD, DKA, ARF, appy, cholecystitis, CVA, Diverticulitis, Homicidal, Suicid al, threat to staff... and all critical care pts) @ -No Disposition Clinical Impression: Otitis externa of both ears, Strep pharyngitis Disposition: HOME SELF-CARE Condition: Good Instructions (If sedation given, give patient instructions): Swimmer's Ear (ED), Strep Throat (DC) Additional Instructions: Please return to the Emergency Department if symptoms worsen or any other concerns. Please complete full course of Ceftin as prescribed. Continue to use topical antibiotic drops, 2 drops in the bilateral ears every 6 hours for 1 week. Prescriptions: Cefuroxime [Ceftin] 250 mg PO BID 7 Days #14 tab Is patient prescribed a controlled substance at d/c from ED?: No Referrals: Juan Palencia DO [Primary Care Provider] - 1-2 days Time of Disposition: 10:45
[2024-09-25] MEDS: DEXAMETHASONE SOD PHOSPHATE 4 MG/ML 1 ML VIAL IM STA (10:56)
[2024-09-25] MEDS: CIPROFLOXACIN-DEXAMETH 0.3-0.1% DROPS 7.5 ML BTL BOTH EARS STA (11:07)
[2024-09-25 11:15] VITALS: BP 101/80; PULSE 84; TEMP 98
== END 2024-09-25 11:16 | disposition home or self-care (01) ==
LOC: EC 09:55
DX: H60.93 Unspecified otitis externa, bilateral (principal); J02.0 Streptococcal pharyngitis; F17.290 Nicotine dependence, other tobacco product, uncomplicated; Z88.0 Allergy status to penicillin; Z88.1 Allergy status to other antibiotic agents; Z88.2 Allergy status to sulfonamides; Z88.8 Allergy status to other drugs, medicaments and biological substances
CPT/HCPCS: 87651; 99283; 96372; J1100

== ENCOUNTER 2024-10-01 02:09 | Emergency (ER) | payer MEDICARE, OTHER ==
[2024-10-01 02:15] VITALS: RESP 18
[2024-10-01] MEDS: HYDROmorphone 1 MG/ML 1 ML SYRINGE IVP STA ×3 (03:01→05:16)
--- NOTE | 2024-10-01 03:01 | ED ---
General Adult HPI - General Chief complaint: Abdominal Pain Stated complaint: abd pain Time Seen by Provider: 10/01/24 02:10 Source: patient, EMS Mode of arrival: EMS - History of Present Illness Initial comments: Dictation was produced using [employer] dictation software. please excuse any grammatical, word or spelling errors. Chief Complaint: 64-year-old female with abdominal pain History of Present Illness: Patient 64-year-old female presents emergency department with abdominal pain. Patient states the pain starts in her chest radiates to her back. She states that sharp in nature. Denies any radiation of symptoms to her extremities. Feels like her pain is intrascapular. States that hurts whenever she takes a deep breath. Denies any associate diaphoresis she does feel like she is a little nauseated. Denies extremity issues. Denies any history of cardiac disease. The ROS documented in this emergency department record has been reviewed and confirmed by me. Those systems with pertinent positive or negative responses have been documented in the HPI. All other systems are other negative and/or noncontributory. - Related Data Home Medications Medication Instructions Recorded Confirmed Aspirin 81 mg PO DAILY 03/06/14 07/11/21 Atorvastatin [Lipitor] 80 mg PO DAILY 03/06/14 07/12/21 carvediloL [Coreg] 3.125 mg PO BID 03/06/14 07/12/21 Fluticasone Nasal [place] [Flonase 1 spray EA NOSTRIL DAILY 04/25/15 07/12/21 Nasal [place]] Hydrocodone/Acetaminophen [[place] 1 tab PO TID 04/25/15 07/12/21 10-325] Isosorbide Mononitrate ER [Imdur] 30 mg PO QAM 04/25/15 07/12/21 Levocetirizine Dihydrochloride 5 mg PO DAILY 04/25/15 07/12/21 [Xyzal] Azelastine/Fluticasone 1 spray EA NOSTRIL DAILY 03/22/20 07/12/21 [Azelastin-Flutic 137-50Mcg Spr] DULoxetine HCL [Cymbalta] 60 mg PO QAM 03/22/20 07/12/21 Gabapentin [Neurontin] 600 mg PO TID 03/22/20 07/12/21 Losartan Potassium 25 mg PO QAM 03/22/20 07/12/21 Ascorbic Acid [Vitamin C] 1,000 mg PO DAILY 03/18/21 07/11/21 Cholecalciferol [Vitamin D3 (25 25 mcg PO DAILY 03/18/21 07/12/21 Mcg = 1000 Iu)] Ezetimibe [Zetia] 10 mg PO DAILY 03/18/21 07/12/21 Levothyroxine Sodium 137 mcg PO QAM 03/18/21 07/12/21 Montelukast [Singulair] 10 mg PO DAILY 03/18/21 07/12/21 Multivitamins, Thera [Multivitamin 1 tab PO DAILY 03/18/21 07/12/21 (formulary)] Vitamin B Complex 2 each PO DAILY 03/18/21 07/12/21 Vitamin E (Dl,Tocopheryl Acet) 400 unit PO DAILY 03/18/21 07/12/21 [Vitamin E (400 Iu = 180 mg)] diphenhydrAMINE [Benadryl] 25 mg PO DAILY PRN 03/18/21 07/12/21 methocarbamoL [Robaxin-750] 750 mg PO TID 03/18/21 07/12/21 Omeprazole 40 mg PO DAILY 07/11/21 07/12/21 Previous Rx's Medication Instructions Recorded Cefuroxime [Ceftin] 250 mg PO BID 7 Days #14 tab 09/25/24 Allergies Allergy/AdvReac Type Severity Reaction Status Date / Time ampicillin Allergy Unknown Verified 10/01/24 02:15 Childhood erythromycin base Allergy Nausea, Verified 10/01/24 02:15 stomach cramps sulfamethoxazole Allergy Unknown Verified 10/01/24 02:15 [From Bactrim] Tetracyclines Allergy Nausea Verified 10/01/24 02:15 trimethoprim [From Bactrim] Allergy Unknown Verified 10/01/24 02:15 perfumes Allergy Unknown Uncoded 10/01/24 02:15 Review of Systems ROS Statement: Those systems with pertinent positive or pertinent negative responses have been documented in the HPI. ROS Other: All systems not noted in ROS Statement are negative. Past Medical History Past Medical History: Asthma, COPD, GERD/Reflux, Hearing Disorder / Deafness, Hyperlipidemia, Hypertension, Myocardial Infarction (IA), Osteoarthritis (OA), Pneumonia, Syncope, Thyroid Disorder Additional Past Medical History / Comment(s): BACK PAIN,NEUROPATHY. 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 Last Myocardial Infarction Date:: 2011 History of Any Multi-Drug Resistant Organisms: None Reported Past Surgical History: Back Surgery, Heart Catheterization With Stent, Orthopedic Surgery, Tubal Ligation Additional Past Surgical History / Comment(s): HEART CATH- 3 stents, cleft palette repair, several ear surgeries(tubes mostly, ear drum reconstruction) eye surgery (detached retina), nose surgery, plate and 2 screws in neck, cortisone shots in back, Past Anesthesia/Blood Transfusion Reactions: Family History of Problems w/ Anesthesia, Postoperative Nausea & Vomiting (PONV) Additional Past Anesthesia/Blood Transfusion Reaction / Comment(s): SISTER- WAKES UP DURING SURGERY " Date of Last Stent Placement:: metal stent 2011, March 2012 1 placed, February 2014 1 placed Past Psychological History: Anxiety, Depression Smoking Status: Vaper Past Alcohol Use History: Occasional Past Drug Use History: None Reported - Past Family History Mother Family Medical History: Congestive Heart Failure (CHF) Father Family Medical History: Congestive Heart Failure (CHF) Sister(s) Family Medical History: Cancer Additional Family Medical History / Comment(s): 3 SISTER THAT EACH HAD CANCER General Exam - General Exam Comments Initial Comments: PHYSICAL EXAM: General Impression: Alert and oriented x3, mild distress secondary to pain HEENT: Normocephalic atraumatic, extra-ocular movements intact, pupils equal and reactive to light bilaterally, mucous membranes moist. Cardiovascular: Heart regular rate and rhythm Chest: Able to complete full sentences, no retractions, no tachypnea Abdomen: abdomen soft, non-tender, non-distended, no organomegaly Musculoskeletal: Pulses present and equal in all extremities, no peripheral edema Motor: no focal deficits noted Neurological: CN II-XII grossly intact, no focal motor or sensory deficits noted Skin: Intact with no visualized rashes Psych: Normal affect and mood Course Vital Signs 10/01/24 10/01/24 02:10 03:57 Pulse Rate 66 64 Respiratory 18 18 Rate Blood Pressure 177/99 142/61 O2 Sat by Pulse 94 L 95 Oximetry - Reevaluation(s) Reevaluation #1: 10/01/24 04:26 Patient's chest x-ray showed widened mediastinum. CT angiography ordered showing large dissection of the aorta involving ascending and descending aorta. Patient started on esmolol drip EKG Findings - EKG Comments: EKG Findings:: My EKG interpretation: Ventricular rate 75, sinus rhythm, HI interval 122, QRS 86, QTc 413. No HI prolongation, no QTC prolongation, no ST or T-wave changes noted. Overall, this EKG is unremarkable Medical Decision Making - Medical Decision Making Was pt. sent in by a medical professional or institution (, YAMINI, DIESEL TRACTOR ENGINE MECHANIC, urgent care, hospital, or [facility]...) When possible be specific @ -No Did you speak to anyone other than the patient for history (EMS, parent, family, police, friend...)? What history was obtained from this source @ -No Did you review nursing and triage notes (agree or disagree)? Why? @ -I reviewed and agree with nursing and triage notes Were old charts reviewed (outside hosp., previous admission, EMS record, old EK G, old radiological studies, urgent care reports/EKG's, [facility] records)? Report findings @ -No old charts were reviewed Differential Diagnosis (chest pain, altered mental status, abdominal pain women, abdominal pain men, vaginal bleeding, musculoskeletal, weakness, fever, dyspnea, syncope, headache, dizziness, GI bleed, back pain, seizure, CVA, palpatations, mental health)? @ -Differential Chest Pain: Stable Angina, Unstable Angina, STEMI, NSTEMI Aortic Dissection, Pneumothorax, Musculoskeletal, Esophageal Spasm GERD, Cholecystitis, Pancreatitis, Zoster, this is not meant to be an all-inclusive list. EKG interpreted by me (3pts min.). @ -See above X-rays interpreted by me (1pt min.). @ -Chest x-ray shows wide mediastinum CT interpreted by me (1pt min.). @ -CT angiography shows aortic dissection anything else U/S interpreted by me (1pt. min.). @ -None done What testing was considered but not performed or refused? (CT, X-rays, U/S, labs)? Why? @ -None What meds were considered but not given or refused? Why? @ -None Was smoking cessation discussed for >3mins.? @ -No Were there social determinants of health that impacted care today? How? (Homelessness, low income, unemployed, alcoholism, drug addiction, transportation, low edu. Level, literacy, decrease access to med. care, long term, rehab)? @ -No Was there de-escalation of care discussed even if they declined (Discuss DNR or withdrawal of care, Hospice)? DNR status @ -No What co-morbidities impacted this encounter? (DM, HTN, Smoking, COPD, CAD, Cancer, CVA, ARF, Chemo, Hep., AIDS, mental health diagnosis, sleep apnea, morbid obesity)? @ -None Was patient admitted / discharged? Hospital course, mention meds given and route, prescriptions, significant lab abnormalities, going to OR and other pertinent info. @ -64-year-old female with aortic dissection. Vital signs upon arrival showed hypertension 177/99. CT showed Pawel B dissection. Dissection complicated by mediastinal bleeding and pericardial blood. Case discussed with Dr. Evans states that patient should be transferred to facility with cardiothoracic surgery. Case discussed with Dr. Ahuja at [facility] who is accepting patient transfer. Case discussed with ER doctor, Dr. Lopez who is also agreeable for transfer. patient on esmolol infusion. Did you discuss the management of the patient with other professionals (carrie rodríguez i.e. , PA, DIESEL TRACTOR ENGINE MECHANIC, lab, RT, psych nurse, hospice social worker, office equipment technician, teacher, unemployment insurance hearing officer, upper caser)? Give summary @ -See above Was critical care preformed (if so, how long)? @ -Yes, 77 minutes Undiagnosed new problem with uncertain prognosis? @ -No Drug Therapy requiring intensive monitoring for toxicity (Heparin, Nitro, Insulin, Cardizem)? @ -No Were any procedures done? @ -No Diagnosis/symptom? Acute, or Chronic, or Acute on Chronic? Uncomplicated (without systemic symptoms) or Complicated (systemic symptoms)? @ -Aortic dissection Side effects of treatment? @ -No Exacerbation, Progression, or Severe Exacerbation? @ -No Poses a threat to life or bodily function? How? (Chest pain, [place], [place], pneumonia, PE, COPD, DKA, ARF, appy, cholecystitis, CVA, Diverticulitis, Homicidal, Suicidal, threat to staff... and all critical care pts) @ -yes - Lab Data Result diagrams: 10/01/24 02:42 10/01/24 02:42 Lab Results 10/01/24 10/01/24 10/01/24 Range/Units 02:42 02:42 02:42 WBC 11.39 H (4.50-10.00) 10*3/uL RBC 4.46 (4.10-5.20) 10*6/uL Hgb 13.3 (12.0-15.0) g/dL Hct 39.6 (37.2-46.3) % MCV 88.8 (80.0-97.0) fL MCH 29.8 (27.0-32.0) pg MCHC 33.6 (32.0-37.0) g/dL Plt Count 269 (140-440) 10*3/uL MPV 10.5 (9.5-12.2) fL Immature Gran % (Auto) 0.8 % Immature Gran # 0.09 H (0.00-0.04) 10*3/uL PT 10.8 (10.0-12.5) sec INR 1.0 (<1.2) APTT 19.7 L (22.0-30.0) sec D-Dimer 5.86 H (<0.60) mg/L FEU Sodium 142 (137-145) mmol/L Potassium 4.3 (3.5-5.1) mmol/L Chloride 103 (98-107) mmol/L Carbon Dioxide 30 (22-30) mmol/L Anion Gap 9 mmol/L BUN 19 H (7-17) mg/dL Creatinine 0.61 (0.52-1.04) mg/dL Est GFR (CKD-EPI)AfAm >90 (>60 ml/min/1.73 sqM) Est GFR (CKD-EPI)NonAf >90 (>60 ml/min/1.73 sqM) Glucose 102 H (74-99) mg/dL Calcium 9.1 (8.4-10.2) mg/dL Magnesium 1.9 (1.6-2.3) mg/dL Total Bilirubin 0.6 (0.2-1.3) mg/dL AST 30 (14-36) U/L ALT 23 (4-34) U/L Alkaline Phosphatase 80 (38-126) U/L Troponin I (0.000-0.034) ng/mL Total Protein 7.2 (6.3-8.2) g/dL Albumin 4.1 (3.5-5.0) g/dL // Range/Units 02:42 WBC (4.50-10.00) 10*3/uL RBC (4.10-5.20) 10*6/uL Hgb (12.0-15.0) g/dL Hct (37.2-46.3) % MCV (80.0-97.0) fL MCH (27.0-32.0) pg MCHC (32.0-37.0) g/dL Plt Count (140-440) 10*3/uL MPV (9.5-12.2) fL Immature Gran % (Auto) % Immature Gran # (0.00-0.04) 10*3/uL PT (10.0-12.5) sec INR (<1.2) APTT (22.0-30.0) sec D-Dimer (<0.60) mg/L FEU Sodium (137-145) mmol/L Potassium (3.5-5.1) mmol/L Chloride (98-107) mmol/L Carbon Dioxide (22-30) mmol/L Anion Gap mmol/L BUN (7-17) mg/dL Creatinine (0.52-1.04) mg/dL Est GFR (CKD-EPI)AfAm (>60 ml/min/1.73 sqM) Est GFR (CKD-EPI)NonAf (>60 ml/min/1.73 sqM) Glucose (74-99) mg/dL Calcium (8.4-10.2) mg/dL Magnesium (1.6-2.3) mg/dL Total Bilirubin (0.2-1.3) mg/dL AST (14-36) U/L ALT (4-34) U/L Alkaline Phosphatase (38-126) U/L Troponin I <0.012 (0.000-0.034) ng/mL Total Protein (6.3-8.2) g/dL Albumin (3.5-5.0) g/dL Disposition Clinical Impression: Aortic dissection Disposition: OTHER INSTITUTION NOT DEFINED Condition: Critical Referrals: Juan Palencia DO [Primary Care Provider] - 1-2 days Time of Disposition: 05:02 - Out of Hospital Transfer - Req. Specs Out of Hospital Transfer - Requested Specifics: Other Emergency Center ([facility])
[2024-10-01 03:19] LABS: ALT 23 U/L (4-34); AST 30 U/L (14-36); African American GFR (CKD) >90 (>60 ml/min/1.73 sqM); Albumin 4.1 g/dL (3.5-5.0); Alkaline Phosphatase 80 U/L (38-126); Anion Gap 9 mmol/L; Blood Urea Nitrogen 19 mg/dL (7-17); Calcium 9.1 mg/dL (8.4-10.2); Carbon Dioxide 30 mmol/L (22-30); Chloride 103 mmol/L (98-107); Glucose 102 mg/dL (74-99); Magnesium 1.9 mg/dL (1.6-2.3); Non-African American GFR(CKD) >90 (>60 ml/min/1.73 sqM); Potassium 4.3 mmol/L (3.5-5.1); Sodium 142 mmol/L (137-145); Total Protein 7.2 g/dL (6.3-8.2)
[2024-10-01] MEDS: HYDROmorphone 0.5 MG/0.5 ML SYRINGE IVP STA (03:54)
[2024-10-01 03:55] LABS: HCT 39.6 % (37.2-46.3); HGB 13.3 g/dL (12.0-15.0); MCH 29.8 pg (27.0-32.0); MCHC 33.6 g/dL (32.0-37.0); MCV 88.8 fL (80.0-97.0); Platelet Count 269 10*3/uL (140-440); RBC 4.46 10*6/uL (4.10-5.20); RDW 12.7 % (11.5-14.5); WBC 11.39 10*3/uL (4.50-10.00)
[2024-10-01 04:00] LABS: INR 1.0 (<1.2); Prothrombin Time 10.8 sec (10.0-12.5)
[2024-10-01 04:03] LABS: Partial Thromboplastin Time 19.7 sec (22.0-30.0)
[2024-10-01] MEDS: ESMOLOL IN SODIUM CHLORIDE PMX 2.5 GM in SALINE 1 250ML.BAG IV SCH (04:36)
--- NOTE | 2024-10-01 04:49 | CT ---
EXAM: CT Angiography Chest Without and With Intravenous Contrast CLINICAL HISTORY: Suspect aortic dissection TECHNIQUE: Axial computed tomographic angiography images of the chest without and with intravenous contrast. MIPS images were created and reviewed. CTDI is 0 mGy and DLP is 0 mGy-cm. This CT exam was performed using one or more of the following dose reduction techniques: automated exposure control, adjustment of the mA and/or kV according to patient size, and/or use of iterative reconstruction technique. MIP reconstructed images were created and reviewed. COMPARISON: CT chest 07/14/2022 FINDINGS: Pulmonary arteries: Unremarkable. No pulmonary embolism. Aorta: No acute findings. No thoracic aortic aneurysm. Lungs: Emphysema is noted. No mass. No consolidation. Pleural space: Small bilateral pleural effusions. No pneumothorax. Heart: Unremarkable. No cardiomegaly. No significant pericardial effusion. No evidence of RV dysfunction. 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 Bones/joints: There are degenerative changes of the spine. No acute fracture. No dislocation. Soft tissues: Unremarkable. Lymph nodes: Unremarkable. No enlarged lymph nodes. IMPRESSION: 1. 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 Emergent vascular consult is recommended. 2. Emphysema is noted. Emphysema is an independent risk factor for lung cancer. Recommend evaluation for low dose lung cancer screening protocol. 3. Small bilateral pleural effusions. EXAM: CT Angiography Abdomen Without and With Intravenous Contrast CLINICAL HISTORY: Suspect aortic dissection TECHNIQUE: Axial computed tomographic angiography images of the abdomen without and with intravenous contrast. CTDI is 89.9 mGy and DLP is 1116.1 mGy-cm. This CT exam was performed using one or more of the following dose reduction techniques: automated exposure control, adjustment of the mA and/or kV according to patient size, and/or use of iterative reconstruction technique. MIP reconstructed images were created and reviewed. COMPARISON: No relevant prior studies available. FINDINGS: Aorta: All of the arteries of the aorta except with the right renal artery are fed from the true lumen. No abdominal aortic aneurysm. No dissection. Celiac trunk and mesenteric arteries: No acute findings. No occlusion or significant stenosis. Renal arteries: No acute findings. No occlusion or significant stenosis. Iliac arteries: The dissection extends into the abdomen extending into both common iliac arteries. Lung bases: Unremarkable. No mass. No consolidation. Liver: Unremarkable. No mass. Gallbladder and bile ducts: Mild prominence of the common bile duct measuring 9 mm in addition to prominence of the pancreatic duct. No calcified stones. Pancreas: See above. No mass. Spleen: Unremarkable. No splenomegaly. Adrenals: Unremarkable. No mass. Kidneys and ureters: Simple appearing bilateral renal cysts are present, no follow up is needed. No obstructing stones. No hydronephrosis. Stomach and bowel: Unremarkable. No obstruction. No mucosal thickening. Appendix: Normal appendix. Intraperitoneal space: Unremarkable. No significant fluid collection. No free air. Bones/joints: No acute fracture. No dislocation. Soft tissues: Unremarkable. No mass. Lymph nodes: Unremarkable. No enlarged lymph nodes. IMPRESSION: 1. The dissection extends into the abdomen extending into both common iliac arteries. All of the arteries of the aorta except with the right renal artery are fed from the true lumen. 2. Mild prominence of the common bile duct measuring 9 mm in addition to prominence of the pancreatic duct. This is concerning for an occult ampullary lesion. <MYCVCSECTION> Communications: 10/01/24 04:50 Call Doctor Regarding Above results, called on 10/01 04:50 (-04:00)
[2024-10-01 05:16] LABS: Eosinophils # (M) 0.11 k/uL (0-0.7); Lymphocytes # (M) 5.24 k/uL (1.0-4.8); Monocytes # (M) 0.68 k/uL (0-1.0); Neutrophils # (M) 5.58 k/uL (1.3-7.7); Neutrophils % (M) 49 %; Total Cells Counted 200
[2024-10-01 05:39] VITALS: BP 79/55; PULSE 81
--- NOTE | 2024-10-01 05:46 | XR ---
EXAM: XR Chest, 2 Views CLINICAL HISTORY: Chest Pain TECHNIQUE: Frontal and lateral views of the chest. COMPARISON: Chest radiographs 10/30/2019 FINDINGS: Lungs: Bilateral airspace opacities are present. Pleural space: Small bilateral pleural effusions. No pneumothorax. Heart: Cardiomegaly with marked widening of the mediastinum and aneurysmal dilatation of the aorta. Mediastinum: See above. Bones/joints: No acute fracture. IMPRESSION: 1. Cardiomegaly with marked widening of the mediastinum and aneurysmal dilatation of the aorta. CTA of the chest has already been performed and reported. 2. Bilateral airspace opacities may represent pulmonary edema and/or atypical infection. 3. Small bilateral pleural effusions.
== END 2024-10-01 05:26 | disposition other institution (70) ==
LOC: EC 02:09
DX: I71.03 Dissection of thoracoabdominal aorta (principal); F17.290 Nicotine dependence, other tobacco product, uncomplicated; Z88.1 Allergy status to other antibiotic agents; Z88.2 Allergy status to sulfonamides; Z88.8 Allergy status to other drugs, medicaments and biological substances
CPT/HCPCS: 36415; 71046; 71275; 74175; 80053; 83690; 83735; 84484; 85025; 85379; 85610; 85730; 93005; 96365; 96375; 96376; 99291